=== PATIENT | male | born 1960 | race Caucasian/White ===

== ENCOUNTER → 2016-08-16 | Outpatient (REF) | payer OTHER ==
[~2016-08-16] MED LIST: /WARF25TA; /WARF5TA; ACET65TA; HYDR25TA6; LISI40TA; PERC5TAB8; VENTAER
[2016-08-16 15:16] LABS: MEAN CORPUSCULAR HEMOGLOBIN 31.3 pg (27.0-33.0); MEAN CORPUSCULAR HGB CONC 32.9 g/dl (32.0-36.5); MEAN CORPUSCULAR VOLUME 95.1 fl (80.0-96.0); PLATELET COUNT, AUTOMATED 160 k/mm3 (150-450); RED CELL DISTRIBUTION WIDTH 12.6 % (11.5-14.5); WHITE BLOOD COUNT 9.3 K/mm3 (4.0-10.0)
[2016-08-16 15:27] LABS: EOSINOPHILS 6 % (0-5)
[2016-08-16 17:01] LABS: ALBUMIN 3.7 GM/DL (3.2-5.2); ALBUMIN/GLOBULIN RATIO 0.97 (1.00-1.93); BILIRUBIN,TOTAL 0.4 MG/DL (0.2-1.0); CALCIUM LEVEL 8.6 MG/DL (8.5-10.1); CREATININE FOR GFR 1.68 MG/DL (0.70-1.30); GLOMERULAR FILTRATION RATE 45.2 (>56); POTASSIUM SERUM 4.3 MEQ/L (3.5-5.1); TOTAL PROTEIN 7.5 GM/DL (6.4-8.2)
== END ==
LOC: M SFHCLACO 09:10
PROVIDERS: ATTEND Physician Assistant
DX: D72.829 Elevated white blood cell count, unspecified (principal); E78.2 Mixed hyperlipidemia; I10 Essential (primary) hypertension; E55.9 Vitamin D deficiency, unspecified

== ENCOUNTER 2016-10-04 10:56 | Emergency (ER) | payer OTHER ==
[~2016-10-04] VITALS: Ht 182.9 cm; Wt 140.6 kg
[2016-10-04 12:20] LABS: BASO % 0.7 % (0.0-1.0); EOS # 0.4 K/mm3 (0.0-0.50); EOS % 5.6 % (0.0-3.0); LARGE UNSTAINED CELL # 0.1 K/mm3 (0.0-0.4); LARGE UNSTAINED CELL % 1.8 % (0.0-4.0); LYMPH # 1.2 K/mm3 (1.5-4.5); LYMPH % 15.4 % (24.0-44.0); MEAN CORPUSCULAR HEMOGLOBIN 31.6 pg (27.0-33.0); MEAN CORPUSCULAR HGB CONC 32.7 g/dl (32.0-36.5); MEAN CORPUSCULAR VOLUME 96.5 fl (80.0-96.0); MONO # 0.5 K/mm3 (0.0-0.8); NEUTROPHILS # 5.4 K/mm3 (1.8-7.7); NEUTROPHILS % 70.5 % (36.0-66.0); PLATELET COUNT, AUTOMATED 160 k/mm3 (150-450); RED CELL DISTRIBUTION WIDTH 12.7 % (11.5-14.5); WHITE BLOOD COUNT 7.7 K/mm3 (4.0-10.0)
[2016-10-04 12:31] LABS: ANION GAP 8 MEQ/L (8-16); BLOOD UREA NITROGEN 45 MG/DL (7-18); CALCIUM LEVEL 8.7 MG/DL (8.5-10.1); CARBON DIOXIDE LEVEL 23 MEQ/L (21-32); CHLORIDE LEVEL 111 MEQ/L (98-107); GLOMERULAR FILTRATION RATE 41.8 (>56); GLUCOSE, FASTING 106 MG/DL (70-105); POTASSIUM SERUM 4.5 MEQ/L (3.5-5.1); SODIUM LEVEL 142 MEQ/L (136-145)
--- NOTE | 2016-10-04 13:36 | REP ---
CHEST, PORTABLE: AP portable view of the chest is performed and compared to a prior study of 05/06/2009 There is mild cardiomegaly. There is pulmonary venous hypertension. No acute infiltrate is seen. The mediastinal silhouette is unremarkable. IMPRESSION: Mild cardiomegaly. No acute infiltrate. Signed by Babar Morales MD 10/04/2016 07:48 P
[2016-10-04 16:03] VITALS: BP 125/80
--- NOTE | 2016-10-05 08:07 | ECGEPIP ---
Stationary ECG Study [facility] - ED Test Date: 2016-10-04 Pat Name: CRYSTAL NEWMAN Department: Room: - Gender: M Journalism Internship: hoang : 1960 Requested By: Cam Stewart Order Number: [id number] Reading MD: Gretel Sarabia Measurements Intervals [place] Rate: 72 P: -19 IN: 113 QRS: 17 QRSD: 140 T: 28 QT: 382 QTc: 420 Interpretive Statements SINUS RHYTHM WITH SHORT IN INTERVAL RIGHT BUNDLE BRANCH BLOCK NO PRIOR FOR COMPARISON Electronically Signed On 10-05-2016 8:06:46 EDT by Gretel Sarabia
--- NOTE | 2016-10-05 08:16 | ECGEPIP ---
Stationary ECG Study [facility] - ED Test Date: 2016-10-04 Pat Name: CRYSTAL NEWMAN Department: Room: - Gender: M Inventory Taker: hoang : 1960 Requested By: Cam Stewart Order Number: [id number] Reading MD: Gretel Sarabia Measurements Intervals [place] Rate: 64 P: -17 NH: 111 QRS: 22 QRSD: 137 T: 29 QT: 392 QTc: 406 Interpretive Statements SINUS RHYTHM WITH SHORT NH INTERVAL RIGHT BUNDLE BRANCH BLOCK DECREASED RATE 10/04/16 11:09 Electronically Signed On 10-05-2016 8:16:03 EDT by Gretel Sarabia
== END 2016-10-04 16:16 | disposition home or self-care (01) ==
LOC: M ED 13:06
DX: N18.9 Chronic kidney disease, unspecified (principal); I51.7 Cardiomegaly; R07.89 Other chest pain; I12.9 Hypertensive chronic kidney disease with stage 1 through stage 4 chronic kidney disease, or unspecified chronic kidney disease; E78.5 Hyperlipidemia, unspecified; E66.01 Morbid (severe) obesity due to excess calories; Z82.49 Family history of ischemic heart disease and other diseases of the circulatory system

== ENCOUNTER → 2017-01-26 | Outpatient (REF) | payer OTHER ==
[2017-01-26 15:03] LABS: ALBUMIN 3.7 GM/DL (3.2-5.2); ALBUMIN/GLOBULIN RATIO 1.03 (1.00-1.93); BILIRUBIN,TOTAL 0.4 MG/DL (0.2-1.0); CALCIUM LEVEL 9.2 MG/DL (8.5-10.1); CREATININE FOR GFR 1.72 MG/DL (0.70-1.30); GLOMERULAR FILTRATION RATE 43.9 (>56); POTASSIUM SERUM 4.9 MEQ/L (3.5-5.1); TOTAL PROTEIN 7.3 GM/DL (6.4-8.2)
== END ==
LOC: M SFHCLACO 08:09
PROVIDERS: ATTEND Physician Assistant
DX: I10 Essential (primary) hypertension (principal); E78.2 Mixed hyperlipidemia; E55.9 Vitamin D deficiency, unspecified

== ENCOUNTER → 2017-03-30 | Outpatient (REF) | payer OTHER ==
[2017-03-30 14:23] LABS: MEAN CORPUSCULAR HEMOGLOBIN 31.1 pg (27.0-33.0); MEAN CORPUSCULAR HGB CONC 32.2 g/dl (32.0-36.5); MEAN CORPUSCULAR VOLUME 96.6 fl (80.0-96.0); RED CELL DISTRIBUTION WIDTH 13.1 % (11.5-14.5); WHITE BLOOD COUNT 9.3 10^3/uL (4.0-10.0)
[2017-03-30 14:26] LABS: CBCMD ORDERED? YES (YES)
[2017-03-30 14:46] LABS: ERYTHROCYTE SEDIMENTATION RATE 12 mm/hr (0-20)
[2017-03-30 14:54] LABS: ALBUMIN 3.8 GM/DL (3.2-5.2); ALBUMIN/GLOBULIN RATIO 1.03 (1.00-1.93); BILIRUBIN,TOTAL 0.3 MG/DL (0.2-1.0); CALCIUM LEVEL 8.8 MG/DL (8.5-10.1); CREATININE FOR GFR 2.48 MG/DL (0.70-1.30); GLOMERULAR FILTRATION RATE 28.7 (>56); TOTAL PROTEIN 7.5 GM/DL (6.4-8.2)
[2017-03-30 14:59] LABS: INR 0.95; POTASSIUM SERUM 5.7 MEQ/L (3.5-5.1)
[2017-03-30 15:14] LABS: BASOPHILS 2 % (0-4); EOSINOPHILS 2 % (0-5)
== END ==
LOC: M LAB REF 13:10
PROVIDERS: ATTEND Orthopaedic Surgery
DX: M19.072 Primary osteoarthritis, left ankle and foot (principal)

== ENCOUNTER → 2017-04-26 | Outpatient (REF) | payer OTHER ==
[~2017-04-26] MED LIST changes: +CHOLTAB6 PO; +DRIS50002 PO; +ISOS30TA4 PO; -LISI40TA; +LISI40TA PO; +MULT1TAB10 PO; +TORS20TA2 PO; +TYLE650T35 PO; +VITA500T PO; +VITATAB11 PO
== END ==
LOC: M LAB REF 17:17
PROVIDERS: ATTEND Radiology Diagnostic Radiology
DX: M25.472 Effusion, left ankle (principal)

== ENCOUNTER → 2017-05-04 | Outpatient (CLI) | payer OTHER ==
[~2017-05-04] MED LIST changes: +LIDOCAINE 1% MDV 20ML VIAL As Ordered ONE
--- NOTE | 2017-05-04 13:15 | REP ---
Soft-tissue ultrasound left ankle and distal calf: History: MRI study of the left ankle from [facility] dated March 11, 2017 showed a complex fluid collection 3.5 x 2.5 x 1.8 cm in the distal calf consistent with a ganglion. The patient was referred for ultrasound directed needle aspiration and culture. Sonographic findings: The patient was scanned in the prone position and medial, lateral, and the posterior soft-tissue ultrasound is performed from the hind foot to the midcalf. The recently identified fluid collection in the distal calf on the prior MRI study is not seen today. Only a small quantity of subcutaneous edema is noted. There is a small quantity of fluid surrounding a somewhat thickened tibialis posterior tendon at the level of the ankle. No other fluid collection is seen. Impression: The fluid collection observed on prior MRI is not present today. Accordingly, we did not aspirate. Findings were telephoned to Dr. Mckenna. Signed by Jamaal Douglas MD 05/04/2017 04:08 P
== END ==
LOC: M RADPRO 10:15
PROVIDERS: ATTEND Orthopaedic Surgery
DX: R22.42 Localized swelling, mass and lump, left lower limb (principal)

== ENCOUNTER → 2017-05-06 | Outpatient (CLI) | payer OTHER ==
[~2017-05-06] MED LIST changes: -LIDOCAINE 1% MDV 20ML VIAL As Ordered ONE
[2017-05-06 13:20] LABS: BASO # 0.1 10^3/uL (0.0-0.2); BASO % 0.7 % (0.0-1.0); EOS # 0.2 10^3/uL (0.0-0.50); EOS % 1.9 % (0.0-3.0); IMMATURE GRANULOCYTE % 0.3 % (0-0); LYMPH # 1.8 10^3/uL (1.5-4.5); LYMPH % 20.2 % (24.0-44.0); MEAN CORPUSCULAR HEMOGLOBIN 30.9 pg (27.0-33.0); MEAN CORPUSCULAR HGB CONC 31.9 g/dl (32.0-36.5); MEAN CORPUSCULAR VOLUME 96.7 fl (80.0-96.0); MONO % 11.4 % (0.0-5.0); NEUTROPHILS # 5.7 10^3/uL (1.8-7.7); NEUTROPHILS % 65.5 % (36.0-66.0); PLATELET COUNT, AUTOMATED 220 10^3/uL (150-450); RED CELL DISTRIBUTION WIDTH 13.2 % (11.5-14.5); WHITE BLOOD COUNT 8.7 10^3/uL (4.0-10.0)
[2017-05-06 13:34] LABS: INR 1.02
[2017-05-06 13:35] LABS: ALBUMIN/GLOBULIN RATIO 1.08 (1.00-1.93); BILIRUBIN,TOTAL 0.4 MG/DL (0.2-1.0); CALCIUM LEVEL 9.5 MG/DL (8.5-10.1); CREATININE FOR GFR 2.01 MG/DL (0.70-1.30); FREE T4 0.82 NG/DL (0.76-1.46); GLOMERULAR FILTRATION RATE 36.6 (>56); MAGNESIUM LEVEL 2.4 MG/DL (1.8-2.4); PERCENT SATURATION 20.2 % (19.7-50.0); POTASSIUM SERUM 4.8 MEQ/L (3.5-5.1); TOTAL PROTEIN 7.7 GM/DL (6.4-8.2)
== END ==
LOC: M WUC 11:28
PROVIDERS: ATTEND Family Medicine
DX: Z01.818 Encounter for other preprocedural examination (principal); I10 Essential (primary) hypertension; D53.9 Nutritional anemia, unspecified

== ENCOUNTER 2017-05-08 07:30 | Inpatient (IN) | payer OTHER ==
[~2017-05-08] VITALS: Ht 182.9 cm; Wt 149.7 kg
[2017-05-24] VITALS (7 sets, daily range): BP systolic 130–137; BP diastolic 67–72; O2SAT 97
[2017-05-24] MEDS ORDERED: LIDOCAINE 1% MDV 20ML VIAL SQ PRN (06:15)
[2017-05-24] MEDS ORDERED: LR 1,000 ML IV SCH ×2 (06:15→16:15)
[2017-05-24] MEDS ORDERED: fentaNYL 250 MCG/5 ML INJECTION (J3010) As Ordered ONE (06:53)
[2017-05-24] MEDS ORDERED: ROCURONIUM BROMIDE 50 MG/5 ML VIAL As Ordered ONE ×2 (06:53→08:08)
[2017-05-24] MEDS ORDERED: MIDAZOLAM INJ 2 MG/2 ML VIAL (J2250) As Ordered ONE (06:53)
[2017-05-24] MEDS ORDERED: fentaNYL 100 MCG/2 ML INJECTION (J3010) As Ordered ONE (06:53)
[2017-05-24] MEDS ORDERED: LIDOCAINE 2% INJ 100 MG/5 ML SDV (FOR ANES.) As Ordered ONE ×2 (06:53→08:08)
[2017-05-24] MEDS ORDERED: HEPARIN SOD (PORCINE) 5000 UNITS/ML VIAL As Ordered ONE (07:43)
[2017-05-24] MEDS ORDERED: MIDAZOLAM INJ 2 MG/2 ML VIAL (J2250) IV ONE (07:45)
[2017-05-24] MEDS ORDERED: fentaNYL 100 MCG/2 ML INJECTION (J3010) IV ONE (07:45)
[2017-05-24] MEDS ORDERED: BUPIVACAINE HCL 0.5% 30 ML VIAL As Ordered ONE (08:03)
--- NOTE | 2017-05-24 08:06 | HPE ---
DATE OF ADMISSION: 05/24/2017 CHIEF COMPLAINT: Left foot pain. HISTORY OF PRESENT ILLNESS: Jasiel Boucher is a 56-year-old male who has had painful flat foot for many years. He has failed bracing and other conservative measures. He presents for flat foot reconstruction. PAST MEDICAL HISTORY: 1. Hypertension. 2. Hyperlipidemia. 3. Chronic kidney disease, stage III. 4. Morbid obesity. 5. Chronic right bundle branch block. 6. Vitamin D deficiency. PAST SURGICAL HISTORY: 1. Left hip replacement in 2001. 2. Hernia repair in 1985. 3. Repair of a deviated septum in 1967. HOME MEDICATIONS: - Amlodipine - CholestOff - acetaminophen - multivitamin - vitamin C - B complex - Drisdol - isosorbide mononitrate - lisinopril - albuterol - torsemide SOCIAL HISTORY: The patient has not smoked in 10 years. He lives with his . He is a andre. PHYSICAL EXAMINATION: GENERAL: Well appearing, alert and oriented. No acute distress. PULMONARY: Regular. Nonlabored breathing. CARDIOVASCULAR: Regular. Dorsalis pedis (DP) pulse. MUSCULOSKELETAL: The patient has a significant left flat foot deformity with pain in the subfibular sinus tarsi region. He is neurovascularly intact to this extremity. IMAGING: Radiographs performed at [facility] demonstrate a left flat foot deformity with significant abduction of the forefoot and heel valgus. IMPRESSION: Left flat foot deformity. PLAN: Risks and benefits of surgery were discussed with the patient in detail. He has elected to proceed with left flat foot deformity. Informed consent has been obtained. The risks include but are not limited to infection, deep venous thrombosis (DVT), need for additional procedures, continued pain and stiffness. The patient understands these risks and has elected to proceed with the procedure.
[2017-05-24] MEDS ORDERED: PROPOFOL 200 MG/20 ML VIAL As Ordered ONE ×2 (08:08→15:30)
[2017-05-24] MEDS ORDERED: ePHEDrine SULFATE 25 MG/5 ML(5MG/ML) SYRINGE As Ordered ONE ×3 (08:31→13:36)
[2017-05-24] MEDS ORDERED: PHENYLephrine HCL 500 MCG/5 ML (100MCG/ML) SYRINGE (J2370) As Ordered ONE ×2 (10:27→13:38)
[2017-05-24] MEDS ORDERED: dexameTHASONE 10 MG/1 ML VIAL PRES.FREE (J1100) ONE (11:28)
[2017-05-24] MEDS ORDERED: ROPIvacaine 0.5% 30 ML INJECTION (J2795 PER 1MG) ONE (11:28)
[2017-05-24] MEDS ORDERED: ceFAZolin 2 GM/D5W 50 ML IV BAG (J0690 PER 500MG) As Ordered ONE (13:06)
[2017-05-24] MEDS ORDERED: HYDROmorphone HCL 2 MG/ML 1ML VIAL (J1170) As Ordered ONE (13:20)
[2017-05-24] MEDS ORDERED: DESFLURANE 240 ML INHALANT As Ordered ONE (13:46)
[2017-05-24] MEDS ORDERED: PHENYLEPHRINE INJ 10MG/ML VIAL (J2370) As Ordered ONE (13:54)
[2017-05-24] MEDS ORDERED: NEOSTIGMINE 10 MG/10 ML VIAL (J2710) As Ordered ONE (14:39)
[2017-05-24] MEDS ORDERED: GLYCOPYRROLATE INJ 0.2 MG/ML 2 ML VIAL As Ordered ONE (14:39)
[2017-05-24] MEDS ORDERED: NORCO, ANEXSIA 5/325MG TABLET (HYDROcodone/ACETAMINOPHEN) PO PRN (16:15)
[2017-05-24] MEDS ORDERED: ONDANSETRON 4MG/2ML VIAL (J2405) IV PRN ×2 (16:15→19:30)
[2017-05-24] MEDS: fentaNYL 100 MCG/2 ML INJECTION (J3010) IV PRN ×4 (16:20→16:37)
[2017-05-24] MEDS ORDERED: FLEET ENEMA PR PRN (16:45)
[2017-05-24] MEDS ORDERED: oxyCODONE 5MG TAB PO PRN (16:45)
[2017-05-24] MEDS ORDERED: MORPHINE 10 MG/ML 1ML VIAL As Ordered ONE (16:47)
[2017-05-24] MEDS: MORPHINE 10 MG/ML 1ML VIAL IV PRN ×5 (16:51→17:11)
[2017-05-24] MEDS ORDERED: HYDROmorphone HCL 1 MG/ML SYRINGE (J1170) As Ordered ONE (17:28)
[2017-05-24] MEDS ORDERED: HYDROmorphone HCL 1 MG/ML SYRINGE (J1170) IV PRN (17:45)
[2017-05-24] MEDS: ACETAMINOPHEN 500 MG TAB PO SCH (18:38)
[2017-05-24] MEDS: RIVAROXABAN 10 MG TAB (XARELTO) PO SCH (18:39)
[2017-05-24] MEDS: oxyCODONE 5MG TAB PO PRN (18:39)
[2017-05-24] MEDS: LR 1,000 ML IV SCH (18:44)
[2017-05-25] MEDS: ACETAMINOPHEN 500 MG TAB PO SCH ×3 (00:28→16:20)
[2017-05-25] MEDS: oxyCODONE 5MG TAB PO PRN ×5 (00:28→23:58)
[2017-05-25] MEDS: LR 1,000 ML IV SCH ×2 (03:52→14:59)
[2017-05-25 04:00] VITALS: BP 127/66
[2017-05-25 06:00] VITALS: BP 125/65
[2017-05-25 07:13] LABS: MEAN CORPUSCULAR HEMOGLOBIN 30.5 pg (27.0-33.0); MEAN CORPUSCULAR HGB CONC 31.9 g/dl (32.0-36.5); MEAN CORPUSCULAR VOLUME 95.4 fl (80.0-96.0); PLATELET COUNT, AUTOMATED 162 10^3/uL (150-450); RED CELL DISTRIBUTION WIDTH 13.3 % (11.5-14.5); WHITE BLOOD COUNT 11.8 10^3/uL (4.0-10.0)
[2017-05-25 07:25] LABS: CALCIUM LEVEL 8.3 MG/DL (8.5-10.1); CREATININE FOR GFR 2.05 MG/DL (0.70-1.30); GLOMERULAR FILTRATION RATE 35.8 (>56); POTASSIUM SERUM 4.5 MEQ/L (3.5-5.1)
[2017-05-25] MEDS: SENOKOT S TAB PO SCH ×2 (08:24→20:00)
[2017-05-25] MEDS: LISINOPRIL 40 MG TAB PO SCH (08:24)
[2017-05-25] MEDS: VITAMIN D 1,000 INTERNATIONAL UNITS TABLET PO SCH (08:24)
[2017-05-25] MEDS: ISOSORBIDE MON. (IMDUR) 30 MG XR TAB PO SCH (08:25)
[2017-05-25] MEDS: TORSEMIDE 20 MG TAB PO SCH (08:25)
[2017-05-25] MEDS: MIRALAX *UNIT DOSE* 17GM PACKET PO SCH (08:26)
[2017-05-25 08:30] VITALS: O2SAT 95
--- NOTE | 2017-05-25 09:00 | REP ---
Left foot series: 18 views intraprocedural. History: Flatfoot reconstruction. 6 minutes 27 seconds of fluoroscopy time is reported. Findings: A sequence of 18 fluoroscopically obtained procedural spot radiographs of the left foot document calcaneal osteotomies and metallic pin fixation. There is also medial cuneiform osteotomy and pinning. Signed by Jamaal Douglas MD 05/25/2017 03:53 P
[2017-05-25] MEDS: MORPHINE 4 MG/ML 1ML SYRINGE IV PRN ×3 (12:32→22:47)
[2017-05-25 14:00] VITALS: BP 149/69
--- NOTE | 2017-05-25 14:01 | CR.PDOC ---
[facility] Consultation Consultation REFERRING PROVIDER: ATTENDING PHYSICIAN: Dr. Caballero REASON FOR CONSULTATION/CHIEF COMPLAINT: Medical management following orthopedic foot surgery HISTORY OF PRESENT ILLNESS: Mr. Boucher is a 56-year-old male, obese male, who presented to the orthopedics office with painful flat foot for many years. He has failed bracing and other conservative measures. On 05/24/2017 patient underwent a left flat foot reconstruction medialization calcaneal osteotomy. He also underwent a lateral column length and cotton osteotomy flexor digitorum longus tendon transfer. Patient tolerated procedure without difficulties, and he is on proper medication for pain control. He does not appear to be in any distress at the moment. ALLERGIES: Please see below. HOME MEDICATIONS: Please see below. PAST MEDICAL HISTORY: Hypertension Hyperlipidemia Chronic kidney disease Morbid obesity Chronic right bundle branch block Vitamin D deficiency PAST SURGICAL HISTORY: 1. Left hip replacement in 2001. 2. Hernia repair in 1985. 3. Repair of a deviated septum in 1967 FAMILY HISTORY: Mom and dad both have hypertension SOCIAL HISTORY: The patient has not smoked in 10 years. He lives with his . He is a andre. REVIEW OF SYSTEMS: CONSTITUTIONAL: Chills denies any nausea denies any vomiting HEENT: Denies any watery eyes denies history of throat pain a next well and denied any headaches CARDIOVASCULAR: Denies palpitations, denied chest pain RESPIRATORY: As in difficulty breathing denies any shortness of breath denies any cough is any pleuritic chest pain GENITOURINARY: Denies any issues or urination denies frequency denies dysuria hematuria MUSCULOSKELETAL: Admits to leg pain on his left foot for recent surgery GASTROINTESTINAL: No issues to 90 nausea vomiting NEUROLOGICAL: The foot is numb from anesthetic no block PHYSICAL EXAMINATION: PHYSICAL EXAMINATION ON DISCHARGE: Vitals: (see below) General: No acute distress, laying comfortably in bed. HEENT: Moist mucous membranes. Neck: No JVD or lymphadenopathy Cardiac: RRR, No murmurs Pulm: Clear to auscultation b/l. No wheezing, rhonchi Abd: NT/ND + BS Ext: Left foot is numb from anesthetic nerve block. Left foot is currently wrapped up in a soft bandage right foot has 2+ pedal pulse noted edema noted LABORATORY DATA: Please see below. ASSESSMENT/PLAN: A 56-year-old man recently underwent surgical painful flat foot for many years Medical team was consulted for medical management of patient's chronic medical conditions. Hypertension -Continue lisinopril, BP is currently stable Hyperlipidemia Chronic kidney disease stage III -Patient's BUN and creatinine appear to be at baseline Morbid obesity -Recommend dietitian and nutrition consult upon discharge Vital Signs/I&O Vital Signs Date Time Temp Pulse Resp B/P (MAP) Pulse Ox O2 Delivery O2 Flow Rate FiO2 05/25/17 12:42 17 05/25/17 08:30 Room Air 05/25/17 08:25 129/76 05/25/17 06:00 98.0 67 97 05/24/17 21:30 2.0 I&O- Last 24 Hours up to 6 AM 05/25/17 06:00 Intake Total 5035 ml Output Total 2130 ml Balance 2905 ml Laboratory Data Labs 24H Laboratory Tests 2 05/25/17 06:30: Nucleated Red Blood Cells % (auto) 0.0, Anion Gap 6L, Glomerular Filtration Rate 35.8L, Blood Urea Nitrogen 41H, Creatinine 2.05H, Sodium Level 141, Potassium Level 4.5, Chloride Level 106, Carbon Dioxide Level 29, Calcium Level 8.3L CBC/BMP Laboratory Tests 05/25/17 06:30 Red Blood Count 3.48 L, Mean Corpuscular Volume 95.4, Mean Corpuscular Hemoglobin 30.5, Mean Corpuscular Hemoglobin Concent 31.9 L, Red Cell Distribution Width 13.3, Calcium Level 8.3 L Allergies Coded Allergies: No Known Allergies (Verified , 05/08/09) Home Medications Scheduled (Cholest Off) 450 Mg Tab, 900 MG PO DAILY, (Reported) Acetaminophen (Tylenol 8 Hour Arthritis) 650 Mg Tab, 1,300 MG PO BID, (Reported) Ascorbic Acid (Vitamin C) 500 Mg Tab, 500 MG PO DAILY, (Reported) B1/B2/B3/B5/B6 (Vitamin B Complex) 1 Tab Tab, 1 TAB PO DAILY, (Reported) Isosorbide Mononitrate (Isosorbide Mononitrate ER) 30 Mg Tab, PO DAILY, ( Reported) Lisinopril (Lisinopril) 40 Mg Tab, PO DAILY, (Reported) Multivitamins (Multivitamin Adults) 1 Tab Tab, 1 TAB PO DAILY, (Reported) Oxycodone HCl (Oxycodone HCl) 10 Mg Tab, 10 MG PO q4 h for 10 Days, #40 Torsemide (Torsemide) 20 Mg Tab, 20 MG PO DAILY, (Reported) Vitamin D (Drisdol) 50,000 Unit Cap, 50,000 UNIT PO QWEEK, (Reported) monday Scheduled PRN Rivaroxaban (Xarelto) 10 Mg Tab, 10 MG PO DAILY PRN for anticoagulation for 30 Days Rivaroxaban (Xarelto) 10 Mg Tab, 10 MG PO DAILY PRN for anticoagulation for 30 Days, #30 GME ATTESTATION GME ATTESTATION My faculty preceptor for this patient encounter was physically present during the encounter and was fully available. All aspects of the patient interview, examination, medical decision making process, and medical care plan development were reviewed and approved by the faculty preceptor. The faculty preceptor is aware and concurs with the plan as stated in the body of this note and will attest to such by his/her cosignature. ATTENDING NOTE I, All Caballero, have both independently examined this patient as well as reviewed the documentation. I have discussed in detail with the resident the findings and plan of treatment as documented in the residents documentation. I will continue to follow the patient and offer further guidance to the patients care as necessary during this hospital stay. RAFI GALDAMEZ DO May 25, 2017 13:36 ALL CABALLERO MD May 28, 2017 16:00
[2017-05-25] MEDS: RIVAROXABAN 10 MG TAB (XARELTO) PO SCH (17:13)
[2017-05-25 20:11] VITALS: O2SAT 96
[2017-05-25 22:00] VITALS: BP 135/81
[2017-05-26] MEDS: ACETAMINOPHEN 500 MG TAB PO SCH ×3 (00:45→16:36)
[2017-05-26] MEDS: LR 1,000 ML IV SCH (01:54)
[2017-05-26] MEDS: MORPHINE 4 MG/ML 1ML SYRINGE IV PRN (02:48)
[2017-05-26] MEDS: oxyCODONE 5MG TAB PO PRN ×5 (03:57→20:07)
[2017-05-26 06:00] VITALS: BP 133/81
[2017-05-26 06:51] LABS: MEAN CORPUSCULAR HEMOGLOBIN 31.2 pg (27.0-33.0); MEAN CORPUSCULAR HGB CONC 32.5 g/dl (32.0-36.5); PLATELET COUNT, AUTOMATED 165 10^3/uL (150-450); RED CELL DISTRIBUTION WIDTH 13.1 % (11.5-14.5); WHITE BLOOD COUNT 11.3 10^3/uL (4.0-10.0)
[2017-05-26 07:14] LABS: CALCIUM LEVEL 8.6 MG/DL (8.5-10.1); CREATININE FOR GFR 1.84 MG/DL (0.70-1.30); GLOMERULAR FILTRATION RATE 40.6 (>56); POTASSIUM SERUM 4.2 MEQ/L (3.5-5.1)
[2017-05-26] MEDS: LISINOPRIL 40 MG TAB PO SCH (08:45)
[2017-05-26] MEDS: TORSEMIDE 20 MG TAB PO SCH (08:45)
[2017-05-26] MEDS: MIRALAX *UNIT DOSE* 17GM PACKET PO SCH (08:45)
[2017-05-26] MEDS: ISOSORBIDE MON. (IMDUR) 30 MG XR TAB PO SCH (08:45)
[2017-05-26] MEDS: SENOKOT S TAB PO SCH ×2 (08:45→20:07)
[2017-05-26] MEDS: VITAMIN D 1,000 INTERNATIONAL UNITS TABLET PO SCH (08:45)
[2017-05-26] MEDS ORDERED: OXYC10TA12 PO (09:24)
[2017-05-26] MEDS ORDERED: XARE10TA PO ×2 (09:29→09:33)
--- NOTE | 2017-05-26 13:14 | IPNPDOC ---
Date Seen The patient was seen on 05/26/17. Progress Note SUBJECTIVE: Patient is a 56-year-old white male post surgery on left foot for flat foot syndrome on 05/25/17. Jasiel Boucher says that he is feeling good. He has 3/10 pain in his left foot which is wrapped in a bandage. He says complains of paresthesia, but he is sensitive to touch on physical. He has been walking with a walker with minimal pain. He denies fevers, chills, nausea, sweats. His foot does not feel warm to him. He denies chest pain or feelings of extra beats. He denies shortness of breath. He had not had any bowel movement although he states that he does not regularly have daily bowel movements. He has been urinating well without pain. OBJECTIVE PHYSICAL EXAMINATION: VITAL SIGNS: Please see below. GENERAL: Lying in bed, cooperative HEENT: normocephalic, atraumatic, mucous membranes moist CARDIOVASCULAR: RRR, no murmurs, rubs, or gallops, normal S1 and S2 RESPIRATORY: Clear to auscultation, no wheezes, rhonchi or rales ABDOMINAL: bowel sounds heard, no tenderness to palpation EXTREMITIES: cap refill normal in L toes, sensation intact in toes, R pedal pulse 2+ NEUROLOGICAL: alert and oriented LABORATORY DATA: Please see below. MICROBIOLOGY: Please see below. IMAGIN05/24/17 - documented calcaneal osteotomies and metallic pin fixation along with medial cuneiform osteotomy and pinning. ASSESSMENT AND PLAN: This is a 56-year-old white male post surgery on left foot for flat foot syndrome. PROBLEMS: 1. S/P surgery for left flat foot reconstruction -patient remains afebrile -WBC count is 11.3 -3/10 pain with morphine -continue pain management -H and H Stable 2. Hypertension -patients BP is stable -continue home medications for HTN 3. Hyperlipidemia -continue home meds 4. CKD stage III -BUN is 35 and cr is 1.84, both are decreased from the previous day's labs. However there are better than there where 4 months ago -We will continue to monitor 5. Obesity -recommend athletic field custodian and nutrition consult on discharge. 6. DVT prophylaxis -xarelto VS, I&O, 24H, Fishbone Vital Signs/I&O Vital Signs Date Time Temp Pulse Resp B/P (MAP) Pulse Ox O2 Delivery O2 Flow Rate FiO2 05/26/17 08:45 133/81 05/26/17 06:00 97.2 71 12 95 Room Air 05/24/17 21:30 2.0 I&O- Last 24 Hours up to 6 AM 05/26/17 06:00 Intake Total 2040 ml Output Total 8075 ml Balance -6035 ml Laboratory Data 24H LABS Laboratory Tests 2 05/26/17 06:33: Nucleated Red Blood Cells % (auto) 0.0, Anion Gap 5L, Glomerular Filtration Rate 40.6L, Blood Urea Nitrogen 35H, Creatinine 1.84H, Sodium Level 139, Potassium Level 4.2, Chloride Level 103, Carbon Dioxide Level 31, Calcium Level 8.6 CBC/BMP Laboratory Tests 05/26/17 06:33 Red Blood Count 3.46 L, Mean Corpuscular Volume 96.0, Mean Corpuscular Hemoglobin 31.2, Mean Corpuscular Hemoglobin Concent 32.5, Red Cell Distribution Width 13.1, Calcium Level 8.6 GME ATTESTATION GME ATTESTATION My faculty preceptor for this patient encounter was physically present during the encounter and was fully available. All aspects of the patient interview, examination, medical decision making process, and medical care plan development were reviewed and approved by the faculty preceptor. The faculty preceptor is aware and concurs with the plan as stated in the body of this note and will attest to such by his/her cosignature. ATTENDING NOTE I, All Lawrence, have both independently examined this patient as well as reviewed the documentation. I have discussed in detail with the resident the findings and plan of treatment as documented in the residents documentation. I will continue to follow the patient and offer further guidance to the patients care as necessary during this hospital stay. RAFI GALDAMEZ DO May 26, 2017 10:02 ALL LAWRENCE MD May 28, 2017 16:04
[2017-05-26 14:00] VITALS: BP 139/73
[2017-05-26] MEDS: RIVAROXABAN 10 MG TAB (XARELTO) PO SCH (17:21)
[2017-05-26 22:00] VITALS: BP 133/65
[2017-05-27] MEDS: ACETAMINOPHEN 500 MG TAB PO SCH ×2 (01:22→08:16)
[2017-05-27] MEDS: oxyCODONE 5MG TAB PO PRN ×3 (01:54→11:09)
[2017-05-27 06:00] VITALS: BP 148/76
[2017-05-27 07:33] LABS: BASO # 0.1 10^3/uL (0.0-0.2); BASO % 0.5 % (0.0-1.0); EOS # 0.3 10^3/uL (0.0-0.50); EOS % 2.7 % (0.0-3.0); IMMATURE GRANULOCYTE % 0.5 % (0-0); LYMPH # 1.2 10^3/uL (1.5-4.5); LYMPH % 10.9 % (24.0-44.0); MEAN CORPUSCULAR HEMOGLOBIN 31.2 pg (27.0-33.0); MEAN CORPUSCULAR HGB CONC 32.6 g/dl (32.0-36.5); MEAN CORPUSCULAR VOLUME 95.8 fl (80.0-96.0); MONO # 1.3 10^3/uL (0.0-0.8); MONO % 12.1 % (0.0-5.0); NEUTROPHILS % 73.3 % (36.0-66.0); PLATELET COUNT, AUTOMATED 177 10^3/uL (150-450); RED CELL DISTRIBUTION WIDTH 12.8 % (11.5-14.5); WHITE BLOOD COUNT 10.9 10^3/uL (4.0-10.0)
[2017-05-27 07:54] LABS: ALBUMIN 3.3 GM/DL (3.2-5.2); ALBUMIN/GLOBULIN RATIO 0.92 (1.00-1.93); BILIRUBIN,TOTAL 0.4 MG/DL (0.2-1.0); CALCIUM LEVEL 8.4 MG/DL (8.5-10.1); CREATININE FOR GFR 1.91 MG/DL (0.70-1.30); GLOMERULAR FILTRATION RATE 38.9 (>56); POTASSIUM SERUM 4.3 MEQ/L (3.5-5.1); TOTAL PROTEIN 6.9 GM/DL (6.4-8.2)
[2017-05-27 08:14] VITALS: BP 148/76
[2017-05-27] MEDS: ISOSORBIDE MON. (IMDUR) 30 MG XR TAB PO SCH (08:14)
[2017-05-27] MEDS: TORSEMIDE 20 MG TAB PO SCH (08:15)
[2017-05-27] MEDS: VITAMIN D 1,000 INTERNATIONAL UNITS TABLET PO SCH (08:15)
[2017-05-27] MEDS: SENOKOT S TAB PO SCH (08:15)
[2017-05-27] MEDS: LISINOPRIL 40 MG TAB PO SCH (08:15)
[2017-05-27] MEDS: MIRALAX *UNIT DOSE* 17GM PACKET PO SCH (08:16)
--- NOTE | 2017-05-27 11:50 | REP ---
Clinical: Pain. Recent surgery. Technique: Portable AP, lateral, oblique views of the left ankle. Findings: Diffuse soft tissue swelling noted. Underlying age-related degenerative changes are appreciated along with evidence for prior open reduction and fixation involving the calcaneus and midfoot. Impression: Diffuse swelling. Signed by Farhad Lopes MD 05/27/2017 11:42 A
--- NOTE | 2017-05-27 11:51 | REP ---
Clinical: Pain. Status post surgery. Technique: Portable AP, lateral, oblique views of the left foot. Findings: Postsurgical changes are appreciated. Overlying soft tissue swelling with small amount of subcutaneous emphysema. Impression: Diffuse soft tissue swelling. Signed by Farhad Lopes MD 05/27/2017 11:43 A
--- NOTE | 2017-05-27 13:40 | IPNPDOC ---
Date Seen The patient was seen on 05/27/17. Progress Note SUBJECTIVE: Patient is a 56-year-old white male post surgery on left foot for flat foot syndrome on 05/25/[address] Foss. Medicine was consulted after his surgery for his medical management. This morning patient says that he is doing well. He denies being in pain, stating that my pain medications are working. His foot is current is a cast. Not erythema noticed and patient admits to his toe sensation returning. Pt will be discharge today. OBJECTIVE PHYSICAL EXAMINATION: VITAL SIGNS: Please see below. GENERAL: Lying in bed, cooperative, pleasant, happy to be going home HEENT: normocephalic, atraumatic, mucous membranes moist, no tonsullar exudates CARDIOVASCULAR: RRR, No rubs, or gallops, normal S1 and S2 RESPIRATORY: Clear to auscultation, no wheezes ABDOMINAL: bowel sounds heard, no tenderness to palpation EXTREMITIES: sensation intact in toes, R pedal pulse 2+ NEUROLOGICAL: alert and oriented LABORATORY DATA: Please see below. MICROBIOLOGY: Please see below. IMAGING: Ankle xray: 05/27/17: Diffuse soft tissue swelling noted. Underlying age-related degenerative changes are appreciated along with evidence for prior open reduction and fixation involving the calcaneus and midfoot ASSESSMENT AND PLAN: This is a 56-year-old white male post surgery on left foot for flat foot syndrome. PROBLEMS: S/P surgery for left flat foot reconstruction -patient remains afebrile -WBC count is 10.9 ( trending down) -H and H Stable Hypertension -patients BP is stable -continue home medications for HTN Hyperlipidemia -continue home meds CKD stage III -BUN is 35 and cr is 1.84, both are decreased from the previous day's labs. However there are better than there where 4 months ago -We will continue to monitor Obesity -recommend shop estimator and nutrition consult on discharge. DVT prophylaxis -xarelto Dispo: Patient will be discharge home today. He is medically stable to go home , but he will need followup with his PCP for management for his chronic medical conditions VS, I&O, 24H, Fishbone Vital Signs/I&O Vital Signs Date Time Temp Pulse Resp B/P (MAP) Pulse Ox O2 Delivery O2 Flow Rate FiO2 05/27/17 11:39 18 05/27/17 08:14 148/76 05/27/17 08:00 Room Air 05/27/17 06:00 97.5 65 97 05/24/17 21:30 2.0 I&O- Last 24 Hours up to 6 AM 05/27/17 06:00 Intake Total 2040 ml Output Total 4330 ml Balance -2290 ml Laboratory Data 24H LABS Laboratory Tests 2 05/27/17 07:20: Immature Granulocyte % (Auto) 0.5H, White Blood Count 10.9H, Red Blood Count 3.56L, Hemoglobin 11.1L, Hematocrit 34.1L, Mean Corpuscular Volume 95.8, Mean Corpuscular Hemoglobin 31.2, Mean Corpuscular Hemoglobin Concent 32.6, Red Cell Distribution Width 12.8, Platelet Count 177, Neutrophils (%) (Auto) 73.3H, Lymphocytes (%) (Auto) 10.9L, Monocytes (%) (Auto) 12.1H, Eosinophils (%) (Auto ) 2.7, Basophils (%) (Auto) 0.5, Neutrophils # (Auto) 8.0H, Lymphocytes # (Auto ) 1.2L, Monocytes # (Auto) 1.3H, Eosinophils # (Auto) 0.3, Basophils # (Auto) 0.1, Immature Granulocyte # (Auto) 0.1H, Nucleated Red Blood Cells % (auto) 0.0 , Anion Gap 6L, Glomerular Filtration Rate 38.9L, Blood Urea Nitrogen 36H, Creatinine 1.91H, Sodium Level 139, Potassium Level 4.3, Chloride Level 100, Carbon Dioxide Level 33H, Calcium Level 8.4L, Aspartate Amino Transf (AST/SGOT) 69H, Alanine Aminotransferase (ALT/SGPT) 16, Alkaline Phosphatase 75, Total Bilirubin 0.4, Total Protein 6.9, Albumin 3.3, Magnesium Level 2.0, Albumin/ Globulin Ratio 0.92L CBC/BMP Laboratory Tests 05/27/17 07:20 Red Blood Count 3.56 L, Mean Corpuscular Volume 95.8, Mean Corpuscular Hemoglobin 31.2, Mean Corpuscular Hemoglobin Concent 32.6, Red Cell Distribution Width 12.8, Neutrophils (%) (Auto) 73.3 H, Lymphocytes (%) (Auto) 10.9 L, Monocytes (%) (Auto) 12.1 H, Eosinophils (%) (Auto) 2.7, Basophils (%) ( Auto) 0.5, Neutrophils # (Auto) 8.0 H, Lymphocytes # (Auto) 1.2 L, Monocytes # ( Auto) 1.3 H, Eosinophils # (Auto) 0.3, Basophils # (Auto) 0.1, Calcium Level 8.4 L, Aspartate Amino Transf (AST/SGOT) 69 H, Alanine Aminotransferase (ALT/ SGPT) 16, Alkaline Phosphatase 75, Total Bilirubin 0.4, Total Protein 6.9, Albumin 3.3 GME ATTESTATION GME ATTESTATION My faculty preceptor for this patient encounter was physically present during the encounter and was fully available. All aspects of the patient interview, examination, medical decision making process, and medical care plan development were reviewed and approved by the faculty preceptor. The faculty preceptor is aware and concurs with the plan as stated in the body of this note and will attest to such by his/her cosignature. ATTENDING NOTE I, All Lawrence, have both independently examined this patient as well as reviewed the documentation. I have discussed in detail with the resident the findings and plan of treatment as documented in the residents documentation. I will continue to follow the patient and offer further guidance to the patients care as necessary during this hospital stay. RAFI GALDAMEZ DO May 27, 2017 13:25 ALL LAWRENCE MD May 28, 2017 16:11
[2017-05-27 14:00] VITALS: BP 158/92
--- NOTE | 2017-05-31 16:57 | DSES ---
DATE OF ADMISSION: 05/24/2017 DATE OF DISCHARGE: 05/27/2017 ATTENDING PHYSICIAN: Dr. Argentina Newton ADMITTING DIAGNOSIS: Left foot pain secondary to left posterior tibial tendon insufficiency and adult acquired flat foot deformity. OTHER DIAGNOSES: 1. Hypertension. 2. Hyperlipidemia. 3. Stage III chronic kidney disease. 4. Morbid obesity. 5. Vitamin D deficiency. 6. Chronic right bundle branch block. DISCHARGE DIAGNOSIS: Left foot pain secondary to left posterior tibial tendon insufficiency and adult acquired flat foot deformity s/p reconstruction. HISTORY: The patient is a 56-year-old male with painful flatfoot deformity on the left for many years. He failed bracing and other conservative measures so he consented for a reconstruction with Dr. Newton. OPERATION PERFORMED: 1. Left flexor digitorum longus transfer to the navicular 2. Right posterior calcaneal osteotomy 3. Right lateral column lengthening 4. Right iliac crest bone marrow aspirate 5. Right gastrocnemius recession 6. C-Arm of the right foot using the mini C-Arm. 7. Spring ligament repair. HOSPITAL COURSE: The patient underwent a left flatfoot reconstruction under general anesthesia which was uneventful. His hospital course was without complication. He was discharged on oral pain medications and will resume his preoperative medications and diet. He will remain in cast and followup in our office in approximately 7-14 days for a wound check. He will nonweightbearing with the use of a walker. He will take aspirin daily to prevent deep venous thrombosis. He is encouraged to contact our office if there is any increased pain, drainage, numbness or tingling in the extremity, fever greater than 101 degrees, or any other concerns. Please see medical record for additional details. GURPREET
--- NOTE | 2017-06-01 20:57 | RO ---
DATE OF PROCEDURE: 05/24/2017 PREOPERATIVE DIAGNOSES: Left posterior tibial tendon insufficiency and adult acquired flat foot deformity. POSTOPERATIVE DIAGNOSES: Left posterior tibial tendon insufficiency and adult acquired flat foot deformity. PROCEDURE: 1. Left flexor digitorum longus transfer to the navicular (CPT code 57103). 2. Right posterior calcaneal osteotomy (CPT code 03903). 3. Right lateral column lengthening (CPT code 03396). 4. Right iliac crest bone marrow aspirate (CPT code 88368). 5. Right gastrocnemius recession (CPT code 97675). 6. C-Arm of the right foot using the mini C-Arm. 7. Spring ligament repair. SURGEON: Argentina Newton MD ENTRY LEVEL STAFF ACCOUNTANT: RAMIN Smith ANESTHESIA: General endotracheal anesthesia with a popliteal nerve block. ESTIMATED BLOOD LOSS: 100 mL. COMPLICATION: A small nondisplaced medial cuneiform fracture, which was stabilized with a 2.7 mm cortical screw. CONDITION: Stable to recovery. INDICATIONS: Jasiel Boucher is a 56-year-old male who has struggled with a flat foot deformity and pain in his foot and ankle for many years. He has exhausted conservative managements, which include bracing, orthotics, use of Tylenol and other medications. He presents today for reconstruction of his flat foot deformity. Risks and benefits of this surgery were discussed with the patient in detail and include, but are not limited to, infection, blood clot, continued pain and stiffness, nonunion, malunion, or fracture, need for additional procedures. Patient understands these risks, and informed consent was obtained. DESCRIPTION OF PROCEDURE: The patient was met in the holding area, and the operative site was signed. Informed consent was signed and checked. The patient was taken to the operating room in stable condition after he underwent a popliteal nerve block. He was then positioned supine for the left side with an ipsilateral wedge pillow bump and a contralateral post. Preoperative antibiotics were given within 60 minutes of the first incision. The leg was prepped with chlorhexidine scrubs. Following this, the leg was prepped and draped in the normal sterile fashion. The iliac crest was also prepped. A Jamshidi needle was introduced between the inner and outer tables of the pelvis, and 60 mL of bone marrow aspirate was aspirated in two 30 mL syringes and sent for centrifugation. This was later mixed with bone graft to be placed at the fusion site. A tourniquet was used to exsanguinate the left lower extremity. A 3-4 cm incision was made over the posteromedial aspect of the calf. It was carried down through the skin, subcutaneous tissue, and done right at the area where the calf tapered. Once through the fascia, a longitudinal fascial incision was made and dissected was carried down bluntly behind the level between the posterior fascia and gastrocnemius and between the gastrocnemius and soleus anteriorly. The gastrocnemius fascia was easily visualized. A vaginal speculum was then introduced, and the fascia was easily visualized. This was then cut with a long-handled knife and Metzenbaum scissors to complete the most lateral edge. This gave excellent improvement in his ability to bring the ankle up to dorsiflexion. The wound was irrigated. Closure was then begun. The subcutaneous tissues were closed using #3-0 Vicryl, and the skin was run with #3-0 nylon. The first incision was made on the medial aspect of the foot. It was carried down through the skin and subcutaneous tissue. The posterior tibial tendon was then visualized and was not found to be grossly abnormal. Of note, there was no major accessory navicular and, therefore, I left the tendon alone. The spring ligament was examined and found to have a small tear. This was repaired using #2 FiberWire in a horizontal mattress fashion. Of note, the spring ligament is continuous with the deltoid ligament and helps support the ankle. Therefore, the need to assess the spring ligament or repair it is synonymous with assessing or repairing the deltoid. Therefore, in cases where I have to repair the spring ligament, I will code to repair the deltoid. Without repairing the spring ligament, the foot and the ankle can both fail and collapse. The flexor digitorum longus (FDL) was found in the floor of the posterior tibial tendon sheath. It was freed and dissected out distally passed the knot of Raul. A Mary drain was placed around the FDL, which was then transected distally to the knot of Raul. A #2 FiberWire suture was used to tie the FDL in a locking and running fashion. Dissection was then carried to the top of the navicular. A pin was placed in the dorsal to plantar direction. It was checked with x-ray in line with the pin to assure that it was out of the respective joints. A 5 mm drill was then used to drill the hole. The FDL tendon was then brought back up through the hole from the plantar to dorsal direction with the aid of the sucker tip. The FDL was tied down to the posterior tibial tendon stub at the end of the case, with the ankle in neutral and the foot in slight inversion. Attention was then turned laterally. An oblique incision was made after taking an x-ray and looking over the lateral aspect of the heel. It was carried down through the skin and subcutaneous tissue. Dissection was then carried down onto the bone. Periosteal dissection was carried up on either side. K-wires were placed to assess the level of the cut. A #40 saw blade was then used to cut across the heel. It was freed with the lamina truck spotter after being finished with an osteotome. It was slid about 10-11 mm medially. It was pinned and provisionally fixed, and x-rays were taken with a [place] view. This gave us nice correction, and the heel was found to be in neutral alignment. Over the wires, the two 4.5 mm cannulated screws were placed after making a stab incision. The appropriate depth was measured. The outer cortex was drilled and the screws were placed, giving an excellent compression. The heel stab incisions were closed at the end of the case. An incision was now made over the lateral column just plantar to the sinus tarsi approach. This was carried down to the skin and subcutaneous tissue. The peroneal tendons were protected inferiorly. The extensor digitorum brevis (EDB) was taken off the anterior calcaneus superiorly. A guidewire was placed and assessed with an AP x-ray of the foot about 12 mm proximal to the joint. This gave good position. A #38 saw blade was then used to cut across parallel to the calcaneocuboid (ML) joint. This was then spread to about 5 mm to give the best correction of the talonavicular joint as assessed on a simulated weightbearing AP radiograph of the foot. An Vishal wedge was taken from allograft, tapered slightly inferiorly as it headed laterally. It was soaked in the bone marrow aspirate from previously, and also we used DBM putty to help with healing of the allograft as well. It was compressed and then fixed with a size 20 mm, 2.7 mm claw plate. It was pinned provisionally and was checked with x-rays. Two screws were then placed. Each of these gave nice compression about the site. The wedge of the calcaneus from the medial calcaneal osteotomy was smoothed, and any excessive ledge was taken off with a rongeur. At this point, a decision was made to make a very small Cotton osteotomy about 2-3 mm. This was to help with some very mild supination of the foot. Incision was made directly over the medial cuneiform. Care was taken to avoid surrounding neurovascular structures, and the extensor hallucis longus (EHL) tendon was retracted laterally. The capsule was incised. A wire was placed in the center of the medial cuneiform joint, and its position was confirmed on AP and lateral radiographs. Using a 38 saw, Cotton osteotomy was performed. As I was distracting with a Hintermann, there was a small fracture through the mid portion of the cuneiform. At this point, the decision was made to repair this fracture and hold off on putting a graft, as the graft I was going to use was quite small and I wanted to make sure that the fracture healed in good position as to not put the patient at risk for getting 1st tarsometatarsal (TMT) arthritis. The fracture was fixed with a 2.7 mm cortical screw and found to have satisfactory alignment on both AP and lateral views. The remainder of the DBX putty was placed in the prior Cotton site. All wounds were copiously irrigated and subcutaneous closed with #3-0 interrupted Vicryl sutures. Skin was closed using #3-0 nylon in a horizontal mattress fashion. Sterile dressings were applied, as well as a well-padded splint. The patient was taken to the recovery room in stable condition. PLAN: The patient will be nonweightbearing in the left lower extremity. I will do a wound check and transition him into a fiberglass cast before he leaves the hospital. He will get 24 hours of IV antibiotics. We will re-evaluate him in the office to see if it is necessary to perform any further procedure, although it is likely this will not be necessary.
== END 2017-05-27 16:05 | disposition home or self-care (01) | DRG 501 ==
LOC: M OR 05-24 06:04 → M MS5PR 05-24 17:52
PROVIDERS: ADMIT Orthopaedic Surgery; ATTEND Orthopaedic Surgery
PROC: 0LSP0ZZ Reposition Left Lower Leg Tendon, Open Approach (ICD-10-PCS; 2017-05-24)
PROC: 0MQT0ZZ Repair Left Foot Bursa and Ligament, Open Approach (ICD-10-PCS; 2017-05-24)
PROC: 079T3ZZ Drainage of Bone Marrow, Percutaneous Approach (ICD-10-PCS; 2017-05-24)
PROC: 0LXP0ZZ Transfer Left Lower Leg Tendon, Open Approach (ICD-10-PCS; principal; 2017-05-24 07:30)
PROC: 0QHM04Z Insertion of Internal Fixation Device into Left Tarsal, Open Approach (ICD-10-PCS; 2017-05-24 07:30)
DX: M21.42 Flat foot [pes planus] (acquired), left foot (principal); Z68.41 Body mass index [BMI] 40.0-44.9, adult; I12.9 Hypertensive chronic kidney disease with stage 1 through stage 4 chronic kidney disease, or unspecified chronic kidney disease; E78.5 Hyperlipidemia, unspecified; N18.3 Chronic kidney disease, stage 3 (moderate); E66.01 Morbid (severe) obesity due to excess calories; Z96.642 Presence of left artificial hip joint; Z79.899 Other long term (current) drug therapy; Z87.891 Personal history of nicotine dependence

== ENCOUNTER 2017-06-28 15:34 | Inpatient (IN) | payer OTHER ==
[2017-06-28] MEDS: NS 500 ML IV (16:15)
[2017-06-28 16:59] LABS: BASO # 0.1 10^3/uL (0.0-0.2); BASO % 0.6 % (0.0-1.0); EOS # 0.3 10^3/uL (0.0-0.50); EOS % 1.9 % (0.0-3.0); HEMATOCRIT 38.5 % (42.0-52.0); HEMOGLOBIN 12.5 g/dl (14.0-18.0); IMMATURE GRANULOCYTE # 0.1 10^3/uL (0-0); IMMATURE GRANULOCYTE % 0.6 % (0-0); LYMPH # 1.7 10^3/uL (1.5-4.5); LYMPH % 12.7 % (24.0-44.0); MEAN CORPUSCULAR HEMOGLOBIN 30.3 pg (27.0-33.0); MEAN CORPUSCULAR HGB CONC 32.5 g/dl (32.0-36.5); MEAN CORPUSCULAR VOLUME 93.4 fl (80.0-96.0); MONO # 1.1 10^3/uL (0.0-0.8); NEUTROPHILS # 10.3 10^3/uL (1.8-7.7); NEUTROPHILS % 76.2 % (36.0-66.0); PLATELET COUNT, AUTOMATED 252 10^3/uL (150-450); RED BLOOD COUNT 4.12 10^6/uL (4.30-6.10); RED CELL DISTRIBUTION WIDTH 12.8 % (11.5-14.5); WHITE BLOOD COUNT 13.6 10^3/uL (4.0-10.0)
[2017-06-28 17:20] LABS: PROTHROMBIN TIME 17.5 SECONDS (12.4-14.5)
[2017-06-28 17:21] LABS: ANION GAP 7 MEQ/L (8-16); BLOOD UREA NITROGEN 72 MG/DL (7-18); CALCIUM LEVEL 9.3 MG/DL (8.5-10.1); CARBON DIOXIDE LEVEL 27 MEQ/L (21-32); CHLORIDE LEVEL 106 MEQ/L (98-107); CREATININE FOR GFR 2.86 MG/DL (0.70-1.30); GLOMERULAR FILTRATION RATE 24.4 (>56); GLUCOSE, FASTING 124 MG/DL (70-100); PARTIAL THROMBOPLASTIN TIME 34.9 SECONDS (26.8-37.9); SODIUM LEVEL 140 MEQ/L (136-145)
[2017-06-28 17:24] LABS: CPK CREATINE PHOSPHOKINASE 81 U/L (39-308); TROPONIN I < 0.02 NG/ML (< 0.10)
[2017-06-28 17:30] LABS: CK-MB VALUE MASS 1.6 NG/ML (0.0-3.6); MB/CK RELATIVE INDEX 1.97 (< OR =4)
[2017-06-28] MEDS: NS 1,000 ML IV ×2 (18:34→20:20)
[2017-06-28] MEDS ORDERED: oxyCODONE 5MG TAB PO (19:00)
[2017-06-28] MEDS ORDERED: HEPARIN SOD (PORCINE) 5000 UNITS/ML VIAL SC (19:00)
[2017-06-28] MEDS ORDERED: BISACODYL 5 MG TAB PO (19:00)
[2017-06-28 19:48] LABS: OSMOLALITY SERUM 316 MOSM/KG (275-295)
[2017-06-28 20:05] LABS: FREE T4 0.86 NG/DL (0.76-1.46)
[2017-06-28 20:05] LABS: FREE T3 2.6 PG/ML (2.2-4.0)
[2017-06-28] MEDS: SENOKOT S TAB PO (20:49)
[2017-06-28] MEDS: ACETAMINOPHEN 650MG ER TAB (TYLENOL ARTHRITIS) PO (21:03)
[2017-06-29 00:58] LABS: CK-MB VALUE MASS 2.1 NG/ML (0.0-3.6); CPK CREATINE PHOSPHOKINASE 92 U/L (39-308); MB/CK RELATIVE INDEX 2.28 (< OR =4); TROPONIN I < 0.02 NG/ML (< 0.10)
[2017-06-29 01:59] LABS: CHLORIDE,RANDOM URINE 47 MEQ/L; CREATININE,RANDOM URINE 85.7 MG/DL; POTASSIUM RANDOM URINE 36.2 MEQ/L; SODIUM,RANDOM URINE 40 MEQ/L; TOTAL PROTEIN,RANDOM URINE 6.4 MG/DL (0.0-12.0)
[2017-06-29 02:02] LABS: APPEARANCE, URINE CLEAR (CLEAR); BACTERIA, URINE AUTO NEGATIVE (NEGATIVE); BILIRUBIN, URINE AUTO NEGATIVE (NEGATIVE); BLOOD, URINE BLOOD NEGATIVE (NEGATIVE); COLOR, URINE YELLOW (YELLOW); GLUCOSE, URINE (UA) AUTO NEGATIVE (NEGATIVE); KETONE, URINE AUTO NEGATIVE (NEGATIVE); LEUKOCYTE ESTERASE, URINE AUTO NEGATIVE (NEGATIVE); NITRITE, URINE AUTO NEGATIVE (NEGATIVE); PROTEIN, URINE AUTO NEGATIVE (NEGATIVE); RBC, URINE AUTO 1 /HPF (0-3); SPECIFIC GRAVITY URINE AUTO 1.011 (1.002-1.035); SQUAMOUS EPITHELIAL CELL UR AU 0 /HPF (0-6); UROBILINOGEN, URINE AUTO 0.2 mg/dL (0.0-2.0); WBC, URINE AUTO 0 /HPF (0-3)
[2017-06-29 02:07] LABS: OSMOLALITY URINE 424 MOSM/KG (500-800)
[2017-06-29] MEDS: NS 1,000 ML IV ×3 (02:49→14:46)
[2017-06-29 06:15] LABS: BASO # 0.1 10^3/uL (0.0-0.2); BASO % 0.7 % (0.0-1.0); EOS # 0.3 10^3/uL (0.0-0.50); HEMATOCRIT 33.4 % (42.0-52.0); HEMOGLOBIN 10.6 g/dl (14.0-18.0); IMMATURE GRANULOCYTE % 0.4 % (0-0); LYMPH # 2.2 10^3/uL (1.5-4.5); LYMPH % 21.5 % (24.0-44.0); MEAN CORPUSCULAR HEMOGLOBIN 29.9 pg (27.0-33.0); MEAN CORPUSCULAR HGB CONC 31.7 g/dl (32.0-36.5); MEAN CORPUSCULAR VOLUME 94.1 fl (80.0-96.0); MONO % 9.9 % (0.0-5.0); NEUTROPHILS # 6.5 10^3/uL (1.8-7.7); NEUTROPHILS % 64.5 % (36.0-66.0); PLATELET COUNT, AUTOMATED 199 10^3/uL (150-450); RED BLOOD COUNT 3.55 10^6/uL (4.30-6.10); RED CELL DISTRIBUTION WIDTH 12.8 % (11.5-14.5); WHITE BLOOD COUNT 10.1 10^3/uL (4.0-10.0)
[2017-06-29 06:35] LABS: C REACTIVE PROTEIN QUANTITATIV 0.85 MG/DL (0.00-0.30)
[2017-06-29 06:36] LABS: ANION GAP 7 MEQ/L (8-16); BLOOD UREA NITROGEN 64 MG/DL (7-18); CALCIUM LEVEL 8.8 MG/DL (8.5-10.1); CARBON DIOXIDE LEVEL 28 MEQ/L (21-32); CHLORIDE LEVEL 105 MEQ/L (98-107); CREATININE FOR GFR 2.39 MG/DL (0.70-1.30); GLUCOSE, FASTING 102 MG/DL (70-100); POTASSIUM SERUM 4.5 MEQ/L (3.5-5.1); SODIUM LEVEL 140 MEQ/L (136-145)
[2017-06-29] MEDS: ASCORBIC ACID 500 MG TAB PO (10:00)
[2017-06-29] MEDS: MULTIVITAMINS/MINERALS THERAP 1 TAB PO (10:00)
[2017-06-29] MEDS: APIXABAN 2.5 MG TAB (ELIQUIS) PO ×2 (10:00→22:25)
[2017-06-29] MEDS: SENOKOT S TAB PO ×2 (10:00→22:24)
[2017-06-29] MEDS: ISOSORBIDE MON. (IMDUR) 30 MG XR TAB PO (10:00)
[2017-06-29] MEDS: amLODIPine 5 MG TAB PO ×2 (10:01→12:41)
[2017-06-29] MEDS: VITAMIN B COMPLEX/VIT C CAP PO (10:01)
[2017-06-29] MEDS: ACETAMINOPHEN 650MG ER TAB (TYLENOL ARTHRITIS) PO ×2 (10:01→22:25)
[2017-06-29] MEDS ORDERED: **hydrALAZINE** 10 MG TAB PO (14:00)
[2017-06-30] MEDS: NS 1,000 ML IV ×2 (00:19→09:11)
[2017-06-30 06:01] LABS: BASO % 0.6 % (0.0-1.0); EOS # 0.3 10^3/uL (0.0-0.50); EOS % 4.4 % (0.0-3.0); HEMOGLOBIN 10.7 g/dl (14.0-18.0); IMMATURE GRANULOCYTE % 0.6 % (0-0); LYMPH # 1.7 10^3/uL (1.5-4.5); LYMPH % 23.8 % (24.0-44.0); MEAN CORPUSCULAR HEMOGLOBIN 31.2 pg (27.0-33.0); MEAN CORPUSCULAR HGB CONC 32.4 g/dl (32.0-36.5); MEAN CORPUSCULAR VOLUME 96.2 fl (80.0-96.0); MONO # 0.7 10^3/uL (0.0-0.8); MONO % 9.5 % (0.0-5.0); NEUTROPHILS # 4.3 10^3/uL (1.8-7.7); NEUTROPHILS % 61.1 % (36.0-66.0); PLATELET COUNT, AUTOMATED 178 10^3/uL (150-450); RED BLOOD COUNT 3.43 10^6/uL (4.30-6.10); RED CELL DISTRIBUTION WIDTH 12.8 % (11.5-14.5)
[2017-06-30 06:18] LABS: ANION GAP 4 MEQ/L (8-16); BLOOD UREA NITROGEN 41 MG/DL (7-18); C REACTIVE PROTEIN QUANTITATIV 0.77 MG/DL (0.00-0.30); CALCIUM LEVEL 8.9 MG/DL (8.5-10.1); CARBON DIOXIDE LEVEL 29 MEQ/L (21-32); CHLORIDE LEVEL 110 MEQ/L (98-107); CREATININE FOR GFR 1.76 MG/DL (0.70-1.30); GLOMERULAR FILTRATION RATE 42.7 (>56); GLUCOSE, FASTING 96 MG/DL (70-100); POTASSIUM SERUM 4.5 MEQ/L (3.5-5.1); SODIUM LEVEL 143 MEQ/L (136-145)
[2017-06-30] MEDS: ACETAMINOPHEN 650MG ER TAB (TYLENOL ARTHRITIS) PO (08:34)
[2017-06-30] MEDS: SENOKOT S TAB PO (08:34)
[2017-06-30] MEDS: ASCORBIC ACID 500 MG TAB PO (08:34)
[2017-06-30] MEDS: APIXABAN 2.5 MG TAB (ELIQUIS) PO (08:34)
[2017-06-30] MEDS: MULTIVITAMINS/MINERALS THERAP 1 TAB PO (08:34)
[2017-06-30] MEDS: VITAMIN B COMPLEX/VIT C CAP PO (08:34)
[2017-06-30] MEDS: amLODIPine 10 MG TAB PO (08:35)
[2017-06-30] MEDS: ISOSORBIDE MON. (IMDUR) 30 MG XR TAB PO (08:35)
== END 2017-06-30 12:31 | disposition home or self-care (01) | DRG 312 ==
LOC: M PCU 06-29 02:44 → M ED 15:34 → M ED INP 19:55
DX: I95.1 Orthostatic hypotension (principal); N17.9 Acute kidney failure, unspecified; N18.3 Chronic kidney disease, stage 3 (moderate); I12.9 Hypertensive chronic kidney disease with stage 1 through stage 4 chronic kidney disease, or unspecified chronic kidney disease; I25.10 Atherosclerotic heart disease of native coronary artery without angina pectoris; M19.90 Unspecified osteoarthritis, unspecified site; E78.5 Hyperlipidemia, unspecified; E55.9 Vitamin D deficiency, unspecified; E66.01 Morbid (severe) obesity due to excess calories; G47.33 Obstructive sleep apnea (adult) (pediatric); I45.10 Unspecified right bundle-branch block; Z79.899 Other long term (current) drug therapy; Z88.6 Allergy status to analgesic agent; Z88.8 Allergy status to other drugs, medicaments and biological substances; Z87.891 Personal history of nicotine dependence; Z98.890 Other specified postprocedural states

== ENCOUNTER → 2017-10-31 | Outpatient (REF) | payer OTHER ==
[2017-10-31 14:41] LABS: BASO # 0.1 10^3/uL (0.0-0.2); BASO % 0.7 % (0.0-1.0); EOS # 0.2 10^3/uL (0.0-0.50); EOS % 2.7 % (0.0-3.0); HEMATOCRIT 43.7 % (42.0-52.0); HEMOGLOBIN 13.7 g/dl (13.5-17.5); IMMATURE GRANULOCYTE % 0.3 % (0-3.0); LYMPH # 1.5 10^3/uL (1.5-4.5); LYMPH % 17.8 % (24.0-44.0); MEAN CORPUSCULAR HEMOGLOBIN 29.5 pg (27.0-33.0); MEAN CORPUSCULAR HGB CONC 31.4 g/dl (32.0-36.5); MONO # 0.7 10^3/uL (0.0-0.8); MONO % 8.1 % (0.0-5.0); NEUTROPHILS # 6.1 10^3/uL (1.8-7.7); NEUTROPHILS % 70.4 % (36.0-66.0); PLATELET COUNT, AUTOMATED 216 10^3/uL (150-450); RED BLOOD COUNT 4.65 10^6/uL (4.30-6.10); RED CELL DISTRIBUTION WIDTH 13.5 % (11.5-14.5); WHITE BLOOD COUNT 8.6 10^3/uL (4.0-10.0)
[2017-10-31 15:11] LABS: ALBUMIN/GLOBULIN RATIO 1.05 (1.00-1.93); ALKALINE PHOSPHATASE 106 U/L (45-117); ALT/SGPT 19 U/L (12-78); ANION GAP 5 MEQ/L (8-16); AST/SGOT 14 U/L (7-37); BILIRUBIN,TOTAL 0.3 MG/DL (0.2-1.0); BLOOD UREA NITROGEN 35 MG/DL (7-18); CALCIUM LEVEL 8.9 MG/DL (8.5-10.1); CARBON DIOXIDE LEVEL 30 MEQ/L (21-32); CHLORIDE LEVEL 110 MEQ/L (98-107); CHOLESTEROL LEVEL 187 MG/DL (<200); CHOLESTEROL RISK RATIO 4.348 (<5); FERRITIN 53 NG/ML (26-388); GLUCOSE, FASTING 98 MG/DL (70-100); HDL CHOLESTEROL 43 MG/DL (>40); IRON (FE) 64 UG/DL (65-175); LDL CHOLESTEROL 116.8 MG/DL (<100); NON-HDL-C 144 MG/DL; PERCENT SATURATION 17.6 % (19.7-50.0); POTASSIUM SERUM 4.9 MEQ/L (3.5-5.1); SODIUM LEVEL 145 MEQ/L (136-145); TOTAL IRON BINDING CAPACITY 364 UG/DL (250-450); TOTAL PROTEIN 7.8 GM/DL (6.4-8.2); TRIGLYCERIDES LEVEL 136 MG/DL (<150)
[2017-10-31 15:20] LABS: VITAMIN B12 LEVEL 1155 PG/ML (247-911)
== END ==
LOC: M SFHCLACO 08:13
DX: D53.9 Nutritional anemia, unspecified (principal); I10 Essential (primary) hypertension; E78.2 Mixed hyperlipidemia

== ENCOUNTER 2017-11-24 05:40 | Inpatient (IN) | payer OTHER ==
[2017-11-24] MEDS ORDERED: LIDOCAINE 1% MDV 20ML VIAL SQ (05:45)
[2017-11-24] MEDS: ACETAMINOPHEN 500 MG TAB PO (06:30)
[2017-11-24] MEDS ORDERED: MIDAZOLAM INJ 2 MG/2 ML VIAL (J2250) As Ordered ×2 (06:45→08:19)
[2017-11-24] MEDS ORDERED: fentaNYL 100 MCG/2 ML INJECTION (J3010) As Ordered ×2 (06:45→08:19)
[2017-11-24] MEDS: LR 1,000 ML IV ×4 (06:46→20:15)
[2017-11-24] MEDS: fentaNYL 100 MCG/2 ML INJECTION (J3010) IV (07:06)
[2017-11-24] MEDS: MIDAZOLAM INJ 2 MG/2 ML VIAL (J2250) IV (07:06)
[2017-11-24] MEDS: EPINEPHrine INJ 1 MG/ML 1ML AMP As Ordered (08:10)
[2017-11-24] MEDS: TRANEXAMIC ACID 100 MG/ML 10ML VIAL As Ordered (08:11)
[2017-11-24] MEDS: ceFAZolin 1GM INJ (J0690 PER 500MG) As Ordered (08:12)
[2017-11-24] MEDS ORDERED: ePHEDrine SULFATE 25 MG/5 ML(5MG/ML) SYRINGE As Ordered (08:19)
[2017-11-24] MEDS ORDERED: ONDANSETRON 4MG/2ML VIAL (J2405) As Ordered (08:19)
[2017-11-24] MEDS ORDERED: LIDOCAINE 2% INJ 100 MG/5 ML SDV (FOR ANES.) As Ordered (08:19)
[2017-11-24] MEDS ORDERED: BUPIVACAINE/DEXTROSE 0.75% 2 ML AMP As Ordered (08:19)
[2017-11-24] MEDS ORDERED: PROPOFOL 500 MG/50 ML VIAL As Ordered ×2 (08:19→08:27)
[2017-11-24] MEDS ORDERED: dexameTHASONE 10 MG/1 ML VIAL PRES.FREE (J1100) (08:23)
[2017-11-24] MEDS ORDERED: ROPIvacaine 0.5% 30 ML INJECTION (J2795 PER 1MG) (08:23)
[2017-11-24] MEDS: BUPIVACAINE LIPOSOME/PF 1.3% 20 ML VIAL (13.3MG/ML)(EXPAREL) As Ordered (09:10)
[2017-11-24] MEDS: BUPIVACAINE HCL 0.25% 10 ML VIAL As Ordered (09:12)
[2017-11-24] MEDS ORDERED: MORPHINE 1MG/ML IN 0.9% NACL 100ML IV BAG As Ordered (09:18)
[2017-11-24] MEDS ORDERED: ACETAMINOPHEN TAB 650MG DOSE (2X325MG) PO (10:00)
[2017-11-24] MEDS ORDERED: ONDANSETRON 4MG/2ML VIAL (J2405) IV ×2 (10:00→10:15)
[2017-11-24] MEDS ORDERED: FLEET ENEMA PR (10:00)
[2017-11-24] MEDS ORDERED: fentaNYL 100 MCG/2 ML INJECTION (J3010) IV (10:00)
[2017-11-24] MEDS ORDERED: NALOXONE INJ 0.4 MG/1 ML VIAL (J2310) IV (10:15)
[2017-11-24] MEDS ORDERED: EPIDURAL/PCA KEYS XX (10:15)
[2017-11-24] MEDS ORDERED: NALBUPHINE HCL 10 MG/ML AMP (J2300) IV (10:15)
[2017-11-24] MEDS ORDERED: diphenhydrAMINE INJ 50MG/ML VIAL (J1200) IV (10:15)
[2017-11-24] MEDS: ISOSORBIDE MON. (IMDUR) 30 MG XR TAB PO (13:08)
[2017-11-25] MEDS: MORPHINE 1MG/ML IN 0.9% NACL 100ML IV BAG IV (02:06)
[2017-11-25 07:23] LABS: HEMATOCRIT 38.4 % (42.0-52.0); HEMOGLOBIN 12.2 g/dl (13.5-17.5); MEAN CORPUSCULAR HEMOGLOBIN 29.5 pg (27.0-33.0); MEAN CORPUSCULAR HGB CONC 31.8 g/dl (32.0-36.5); MEAN CORPUSCULAR VOLUME 92.8 fl (80.0-96.0); PLATELET COUNT, AUTOMATED 216 10^3/uL (150-450); RED BLOOD COUNT 4.14 10^6/uL (4.30-6.10); RED CELL DISTRIBUTION WIDTH 13.8 % (11.5-14.5); WHITE BLOOD COUNT 15.7 10^3/uL (4.0-10.0)
[2017-11-25 07:42] LABS: ANION GAP 9 MEQ/L (8-16); BLOOD UREA NITROGEN 44 MG/DL (7-18); CALCIUM LEVEL 8.4 MG/DL (8.5-10.1); CARBON DIOXIDE LEVEL 27 MEQ/L (21-32); CHLORIDE LEVEL 105 MEQ/L (98-107); CREATININE FOR GFR 2.33 MG/DL (0.70-1.30); GLOMERULAR FILTRATION RATE 30.8 (>56); GLUCOSE, FASTING 113 MG/DL (70-100); POTASSIUM SERUM 4.6 MEQ/L (3.5-5.1); SODIUM LEVEL 141 MEQ/L (136-145)
[2017-11-25] MEDS: SENOKOT S TAB PO ×2 (09:25→20:14)
[2017-11-25] MEDS: amLODIPine 10 MG TAB PO (09:25)
[2017-11-25] MEDS: MOM 30ML SUSPENSION UDC PO (09:26)
[2017-11-25] MEDS: ISOSORBIDE MON. (IMDUR) 30 MG XR TAB PO (09:26)
[2017-11-25] MEDS: MIRALAX *UNIT DOSE* 17GM PACKET PO (09:26)
[2017-11-25] MEDS: PERCOCET 5MG/325MG TAB PO ×2 (09:26→20:16)
[2017-11-25] MEDS: ONDANSETRON 4 MG TAB (S0181) PO (10:19)
[2017-11-25] MEDS: ONDANSETRON 4MG/2ML VIAL (J2405) IV ×2 (12:21→15:31)
[2017-11-25] MEDS ORDERED: ONDANSETRON 4MG/2ML VIAL (J2405) IV (15:15)
[2017-11-25] MEDS: LR 1,000 ML IV (15:23)
[2017-11-25] MEDS: RIVAROXABAN 10 MG TAB (XARELTO) PO (17:17)
[2017-11-26] MEDS: PERCOCET 5MG/325MG TAB PO ×3 (01:57→14:42)
[2017-11-26] MEDS: LR 1,000 ML IV (03:26)
[2017-11-26 06:43] LABS: HEMATOCRIT 36.2 % (42.0-52.0); HEMOGLOBIN 11.7 g/dl (13.5-17.5); MEAN CORPUSCULAR HEMOGLOBIN 29.7 pg (27.0-33.0); MEAN CORPUSCULAR HGB CONC 32.3 g/dl (32.0-36.5); MEAN CORPUSCULAR VOLUME 91.9 fl (80.0-96.0); PLATELET COUNT, AUTOMATED 179 10^3/uL (150-450); RED BLOOD COUNT 3.94 10^6/uL (4.30-6.10); RED CELL DISTRIBUTION WIDTH 13.7 % (11.5-14.5); WHITE BLOOD COUNT 10.9 10^3/uL (4.0-10.0)
[2017-11-26 07:05] LABS: ANION GAP 5 MEQ/L (8-16); BLOOD UREA NITROGEN 32 MG/DL (7-18); CALCIUM LEVEL 8.5 MG/DL (8.5-10.1); CARBON DIOXIDE LEVEL 32 MEQ/L (21-32); CHLORIDE LEVEL 105 MEQ/L (98-107); CREATININE FOR GFR 1.71 MG/DL (0.70-1.30); GLUCOSE, FASTING 107 MG/DL (70-100); POTASSIUM SERUM 4.3 MEQ/L (3.5-5.1); SODIUM LEVEL 142 MEQ/L (136-145)
[2017-11-26] MEDS: MOM 30ML SUSPENSION UDC PO (08:34)
[2017-11-26] MEDS: MIRALAX *UNIT DOSE* 17GM PACKET PO (08:34)
[2017-11-26] MEDS: SENOKOT S TAB PO (08:34)
[2017-11-26] MEDS: ISOSORBIDE MON. (IMDUR) 30 MG XR TAB PO (08:35)
[2017-11-26] MEDS: amLODIPine 10 MG TAB PO (08:35)
== END 2017-11-26 15:15 | disposition home or self-care (01) | DRG 470 ==
LOC: M OR 05:40 → M MS5PR 11:56
PROC: 0SRC0J9 Replacement of Right Knee Joint with Synthetic Substitute, Cemented, Open Approach (ICD-10-PCS; principal; 2017-11-24 07:30)
DX: M17.11 Unilateral primary osteoarthritis, right knee (principal); Z68.42 Body mass index [BMI] 45.0-49.9, adult; I13.10 Hypertensive heart and chronic kidney disease without heart failure, with stage 1 through stage 4 chronic kidney disease, or unspecified chronic kidney disease; R26.89 Other abnormalities of gait and mobility; N18.3 Chronic kidney disease, stage 3 (moderate); G47.33 Obstructive sleep apnea (adult) (pediatric); K42.9 Umbilical hernia without obstruction or gangrene; E66.01 Morbid (severe) obesity due to excess calories; Z96.642 Presence of left artificial hip joint; Z79.899 Other long term (current) drug therapy; Z88.8 Allergy status to other drugs, medicaments and biological substances; Z87.891 Personal history of nicotine dependence

== ENCOUNTER → 2018-01-18 | Outpatient (REF) | payer OTHER ==
[2018-01-18 15:55] LABS: BASO # 0.1 10^3/uL (0.0-0.2); BASO % 0.7 % (0.0-1.0); EOS # 0.2 10^3/uL (0.0-0.50); EOS % 2.2 % (0.0-3.0); HEMATOCRIT 41.7 % (42.0-52.0); HEMOGLOBIN 13.3 g/dl (13.5-17.5); IMMATURE GRANULOCYTE % 0.7 % (0-3.0); LYMPH # 1.7 10^3/uL (1.5-4.5); LYMPH % 16.2 % (24.0-44.0); MEAN CORPUSCULAR HEMOGLOBIN 29.7 pg (27.0-33.0); MEAN CORPUSCULAR HGB CONC 31.9 g/dl (32.0-36.5); MEAN CORPUSCULAR VOLUME 93.1 fl (80.0-96.0); MONO # 0.9 10^3/uL (0.0-0.8); MONO % 8.2 % (0.0-5.0); NEUTROPHILS # 7.6 10^3/uL (1.8-7.7); PLATELET COUNT, AUTOMATED 271 10^3/uL (150-450); RED BLOOD COUNT 4.48 10^6/uL (4.30-6.10); RED CELL DISTRIBUTION WIDTH 14.5 % (11.5-14.5); WHITE BLOOD COUNT 10.5 10^3/uL (4.0-10.0)
[2018-01-18 16:13] LABS: C REACTIVE PROTEIN QUANTITATIV 0.72 MG/DL (0.00-0.30)
[2018-01-18 16:21] LABS: TOTAL 25(OH) VITAMIN D 27.2 NG/ML (30.0-100.0)
[2018-01-18 16:34] LABS: ERYTHROCYTE SEDIMENTATION RATE 20 mm/hr (0-20)
== END ==
LOC: M LABDRAW1 12:58
DX: Z47.89 Encounter for other orthopedic aftercare (principal)
CPT/HCPCS: 82306

== ENCOUNTER → 2018-05-01 | Outpatient (REF) | payer OTHER ==
[2018-05-01 13:36] LABS: BASO # 0.1 10^3/uL (0.0-0.2); BASO % 0.8 % (0.0-1.0); EOS # 0.3 10^3/uL (0.0-0.50); EOS % 2.9 % (0.0-3.0); HEMATOCRIT 42.6 % (42.0-52.0); HEMOGLOBIN 13.8 g/dl (13.5-17.5); IMMATURE GRANULOCYTE % 0.7 % (0-3.0); LYMPH # 1.8 10^3/uL (1.5-4.5); LYMPH % 16.9 % (24.0-44.0); MEAN CORPUSCULAR HEMOGLOBIN 30.4 pg (27.0-33.0); MEAN CORPUSCULAR HGB CONC 32.4 g/dl (32.0-36.5); MEAN CORPUSCULAR VOLUME 93.8 fl (80.0-96.0); MONO # 0.9 10^3/uL (0.0-0.8); MONO % 8.3 % (0.0-5.0); NEUTROPHILS # 7.4 10^3/uL (1.8-7.7); NEUTROPHILS % 70.4 % (36.0-66.0); PLATELET COUNT, AUTOMATED 235 10^3/uL (150-450); RED BLOOD COUNT 4.54 10^6/uL (4.30-6.10); RED CELL DISTRIBUTION WIDTH 13.8 % (11.5-14.5); WHITE BLOOD COUNT 10.5 10^3/uL (4.0-10.0)
[2018-05-01 13:43] LABS: ALBUMIN 3.5 GM/DL (3.2-5.2); ALBUMIN/GLOBULIN RATIO 0.88 (1.00-1.93); ALKALINE PHOSPHATASE 108 U/L (45-117); ALT/SGPT 29 U/L (12-78); ANION GAP 6 MEQ/L (8-16); AST/SGOT 14 U/L (7-37); BILIRUBIN,TOTAL 0.3 MG/DL (0.2-1.0); BLOOD UREA NITROGEN 38 MG/DL (7-18); CALCIUM LEVEL 8.6 MG/DL (8.5-10.1); CARBON DIOXIDE LEVEL 30 MEQ/L (21-32); CHLORIDE LEVEL 107 MEQ/L (98-107); CHOLESTEROL LEVEL 196 MG/DL (<200); CREATININE FOR GFR 1.88 MG/DL (0.70-1.30); FERRITIN 68 NG/ML (26-388); GLOMERULAR FILTRATION RATE 39.4 (>56); GLUCOSE, FASTING 95 MG/DL (70-100); HDL CHOLESTEROL 41 MG/DL (>40); IRON (FE) 71 UG/DL (65-175); LDL CHOLESTEROL 127 MG/DL (<100); NON-HDL-C 155 MG/DL; PERCENT SATURATION 20.5 % (19.7-50.0); POTASSIUM SERUM 4.4 MEQ/L (3.5-5.1); SODIUM LEVEL 143 MEQ/L (136-145); TOTAL IRON BINDING CAPACITY 346 UG/DL (250-450); TOTAL PROTEIN 7.5 GM/DL (6.4-8.2); TRIGLYCERIDES LEVEL 139 MG/DL (<150)
== END ==
LOC: M LABDRWAD 13:18
DX: E78.2 Mixed hyperlipidemia (principal)
CPT/HCPCS: 83550

== ENCOUNTER → 2019-01-08 | Outpatient (REF) | payer OTHER ==
[~2019-01-08] MED LIST changes: -/WARF25TA; -/WARF5TA; +AMLO10TA5 PO; +COUM1TAB17; +COUM1TAB18; -DRIS50002 PO; +DRIS50003 PO; +FLAXOIL PO; +OXYC10TA12 PO; +PERC5TAB12 PO; +VITA400C7 PO; +XARE10TA PO
[2019-01-08 14:43] LABS: BASO # 0.1 10^3/uL (0.0-0.2); EOS # 0.2 10^3/uL (0.0-0.50); EOS % 2.5 % (0.0-3.0); HEMOGLOBIN 12.8 g/dl (13.5-17.5); LYMPH # 1.3 10^3/uL (1.5-4.5); LYMPH % 18.8 % (24.0-44.0); MEAN CORPUSCULAR HEMOGLOBIN 31.1 pg (27.0-33.0); MEAN CORPUSCULAR VOLUME 97.3 fl (80.0-96.0); MONO # 0.6 10^3/uL (0.0-0.8); MONO % 8.7 % (0.0-5.0); NEUTROPHILS # 4.9 10^3/uL (1.8-7.7); NEUTROPHILS % 68.9 % (36.0-66.0); PLATELET COUNT, AUTOMATED 185 10^3/uL (150-450); RED BLOOD COUNT 4.11 10^6/uL (4.30-6.10); WHITE BLOOD COUNT 7.1 10^3/uL (4.0-10.0)
[2019-01-08 14:49] LABS: BILIRUBIN,TOTAL 0.4 MG/DL (0.2-1.0); CALCIUM LEVEL 9.4 MG/DL (8.5-10.1); CREATININE FOR GFR 1.89 MG/DL (0.70-1.30); GLOMERULAR FILTRATION RATE 39.1 (>56); POTASSIUM SERUM 4.4 MEQ/L (3.5-5.1)
[2019-01-08 14:50] LABS: ALBUMIN 3.8 GM/DL (3.2-5.2); CHOLESTEROL RISK RATIO 3.46 (<5); PERCENT SATURATION 21.8 % (19.7-50.0); TOTAL PROTEIN 7.2 GM/DL (6.4-8.2)
== END ==
LOC: M SFHCADAM 09:24
PROVIDERS: ATTEND Physician Assistant
DX: E78.2 Mixed hyperlipidemia (principal)

== ENCOUNTER → 2019-01-08 | Outpatient (REF) | payer OTHER ==
[2019-01-08 14:47] LABS: BASO # 0.1 10^3/uL (0.0-0.2); BASO % 0.7 % (0.0-1.0); EOS # 0.2 10^3/uL (0.0-0.50); EOS % 2.6 % (0.0-3.0); HEMATOCRIT 41.6 % (42.0-52.0); HEMOGLOBIN 13.3 g/dl (13.5-17.5); LYMPH # 1.3 10^3/uL (1.5-4.5); LYMPH % 18.1 % (24.0-44.0); MEAN CORPUSCULAR HEMOGLOBIN 31.9 pg (27.0-33.0); MEAN CORPUSCULAR VOLUME 99.8 fl (80.0-96.0); MONO # 0.6 10^3/uL (0.0-0.8); MONO % 8.7 % (0.0-5.0); NEUTROPHILS # 4.8 10^3/uL (1.8-7.7); NEUTROPHILS % 69.6 % (36.0-66.0); PLATELET COUNT, AUTOMATED 189 10^3/uL (150-450); RED BLOOD COUNT 4.17 10^6/uL (4.30-6.10); WHITE BLOOD COUNT 6.9 10^3/uL (4.0-10.0)
[2019-01-08 14:53] LABS: MAGNESIUM LEVEL 2.4 MG/DL (1.8-2.4); PHOSPHORUS LEVEL 3.7 MG/DL (2.5-4.9)
[2019-01-08 15:48] LABS: TOTAL 25(OH) VITAMIN D 48.3 NG/ML (30.0-100.0)
== END ==
LOC: M LABDRWAD 12:34
PROVIDERS: ATTEND Physician Assistant
DX: K91.2 Postsurgical malabsorption, not elsewhere classified (principal); Z98.84 Bariatric surgery status; E55.9 Vitamin D deficiency, unspecified

== ENCOUNTER → 2019-07-23 | Outpatient (REF) | payer OTHER ==
[2019-07-23 13:20] LABS: BASO # 0.1 10^3/uL (0.0-0.2); BASO % 1.1 % (0.0-1.0); EOS # 0.3 10^3/uL (0.0-0.5); EOS % 4.7 % (0.0-3.0); HEMATOCRIT 42.5 % (42.0-52.0); HEMOGLOBIN 13.5 g/dl (13.5-17.5); LYMPH # 1.6 10^3/uL (1.5-5.0); LYMPH % 29.1 % (24.0-44.0); MEAN CORPUSCULAR HEMOGLOBIN 31.1 pg (27.0-33.0); MEAN CORPUSCULAR HGB CONC 31.8 g/dl (32.0-36.5); MEAN CORPUSCULAR VOLUME 97.9 fl (80.0-96.0); MONO # 0.5 10^3/uL (0.0-0.8); MONO % 10.1 % (0.0-5.0); NEUTROPHILS # 2.9 10^3/uL (1.5-8.5); NEUTROPHILS % 54.6 % (36.0-66.0); PLATELET COUNT, AUTOMATED 179 10^3/uL (150-450); RED BLOOD COUNT 4.34 10^6/uL (4.30-6.10); WHITE BLOOD COUNT 5.3 10^3/uL (4.0-10.0)
[2019-07-23 13:27] LABS: HEMATOCRIT 42.5 % (42.0-52.0)
[2019-07-23 13:30] LABS: ALT/SGPT 42 U/L (12-78); BILIRUBIN,TOTAL 0.4 MG/DL (0.2-1.0); BLOOD UREA NITROGEN 28 MG/DL (7-18); CARBON DIOXIDE LEVEL 32 MEQ/L (21-32); CHLORIDE LEVEL 107 MEQ/L (98-107); CREATININE FOR GFR 1.64 MG/DL (0.70-1.30); FERRITIN 112 NG/ML (26-388); GLUCOSE, FASTING 92 MG/DL (70-100); IRON (FE) 68 UG/DL (65-175); MAGNESIUM LEVEL 2.4 MG/DL (1.8-2.4); PERCENT SATURATION 19.8 % (19.7-50.0); PHOSPHORUS LEVEL 4.1 MG/DL (2.5-4.9); POTASSIUM SERUM 4.5 MEQ/L (3.5-5.1); SODIUM LEVEL 142 MEQ/L (136-145); TOTAL IRON BINDING CAPACITY 343 UG/DL (250-450); TOTAL PROTEIN 7.7 GM/DL (6.4-8.2)
[2019-07-23 13:38] LABS: TOTAL 25(OH) VITAMIN D 51.4 NG/ML (30.0-100.0); VITAMIN B12 LEVEL > 2000 PG/ML (247-911)
[2019-07-23 14:57] LABS: HEMOGLOBIN A1c 5.5 %
== END ==
LOC: M LABDRWAD 12:50
PROVIDERS: ATTEND Physician Assistant
DX: K91.2 Postsurgical malabsorption, not elsewhere classified (principal); Z98.84 Bariatric surgery status; E55.9 Vitamin D deficiency, unspecified

== ENCOUNTER → 2019-09-23 | Outpatient (REF) | payer OTHER ==
[~2019-09-23] MED LIST changes: +VITA-243 PO; -VITA500T PO
[2019-09-23 14:30] LABS: BASO # 0.1 10^3/uL (0.0-0.2); BASO % 1.2 % (0.0-1.0); EOS # 0.2 10^3/uL (0.0-0.5); EOS % 3.6 % (0.0-3.0); HEMATOCRIT 40.4 % (42.0-52.0); HEMOGLOBIN 13.1 g/dl (13.5-17.5); LYMPH # 1.5 10^3/uL (1.5-5.0); LYMPH % 26.1 % (24.0-44.0); MEAN CORPUSCULAR HEMOGLOBIN 31.8 pg (27.0-33.0); MEAN CORPUSCULAR HGB CONC 32.4 g/dl (32.0-36.5); MEAN CORPUSCULAR VOLUME 98.1 fl (80.0-96.0); MONO # 0.5 10^3/uL (0.0-0.8); NEUTROPHILS # 3.5 10^3/uL (1.5-8.5); NEUTROPHILS % 59.9 % (36.0-66.0); PLATELET COUNT, AUTOMATED 171 10^3/uL (150-450); RED BLOOD COUNT 4.12 10^6/uL (4.30-6.10); WHITE BLOOD COUNT 5.9 10^3/uL (4.0-10.0)
[2019-09-23 14:35] LABS: ALBUMIN 3.6 GM/DL (3.2-5.2); BILIRUBIN,TOTAL 0.4 MG/DL (0.2-1.0); CALCIUM LEVEL 8.7 MG/DL (8.5-10.1); CHOLESTEROL RISK RATIO 2.983 (<5); CREATININE FOR GFR 1.8 MG/DL (0.70-1.30); GLOMERULAR FILTRATION RATE 41.3 (>56); PERCENT SATURATION 30.7 % (19.7-50.0); POTASSIUM SERUM 4.3 MEQ/L (3.5-5.1); TOTAL PROTEIN 6.9 GM/DL (6.4-8.2)
== END ==
LOC: M SFHCADAM 09:09
PROVIDERS: ATTEND Physician Assistant
DX: E61.1 Iron deficiency (principal); I12.9 Hypertensive chronic kidney disease with stage 1 through stage 4 chronic kidney disease, or unspecified chronic kidney disease; N18.3 Chronic kidney disease, stage 3 (moderate); E78.2 Mixed hyperlipidemia

== ENCOUNTER → 2020-01-24 | Outpatient (REF) | payer OTHER ==
[~2020-01-24] MED LIST changes: +ACET650T61 PO; -AMLO10TA5 PO; +AMLO1TAB25 PO; -TYLE650T35 PO
[2020-01-24 19:15] LABS: BASO # 0.1 10^3/uL (0.0-0.2); EOS # 0.2 10^3/uL (0.0-0.5); EOS % 2.6 % (0.0-3.0); HEMATOCRIT 36.4 % (42.0-52.0); HEMOGLOBIN 11.8 g/dl (13.5-17.5); LYMPH % 25.4 % (24.0-44.0); MEAN CORPUSCULAR HEMOGLOBIN 32.2 pg (27.0-33.0); MEAN CORPUSCULAR HGB CONC 32.4 g/dl (32.0-36.5); MEAN CORPUSCULAR VOLUME 99.2 fl (80.0-96.0); MONO # 0.6 10^3/uL (0.0-0.8); MONO % 8.1 % (0.0-5.0); NEUTROPHILS # 4.9 10^3/uL (1.5-8.5); NEUTROPHILS % 62.8 % (36.0-66.0); PLATELET COUNT, AUTOMATED 168 10^3/uL (150-450); RED BLOOD COUNT 3.67 10^6/uL (4.30-6.10); WHITE BLOOD COUNT 7.8 10^3/uL (4.0-10.0)
[2020-01-24 19:22] LABS: HEMOGLOBIN A1c 5.4 %
[2020-01-24 20:24] LABS: ALBUMIN 3.7 GM/DL (3.2-5.2); BILIRUBIN,TOTAL 0.4 MG/DL (0.2-1.0); CALCIUM LEVEL 8.8 MG/DL (8.8-10.2); CREATININE FOR GFR 1.58 MG/DL (0.70-1.30); FOLATE 14.2 NG/ML; GLOMERULAR FILTRATION RATE 47.9 (>49); MAGNESIUM LEVEL 2.2 MG/DL (1.8-2.4); PERCENT SATURATION 27.2 % (19.7-50.0); PHOSPHORUS LEVEL 3.9 MG/DL (2.5-4.9); POTASSIUM SERUM 4.5 MEQ/L (3.5-5.1); TOTAL 25(OH) VITAMIN D 50.4 NG/ML (30.0-100.0); TOTAL PROTEIN 6.7 GM/DL (6.4-8.2)
== END ==
LOC: M LABDRWAD 16:47
PROVIDERS: ATTEND Physician Assistant
DX: K91.2 Postsurgical malabsorption, not elsewhere classified (principal); Z98.84 Bariatric surgery status; E55.9 Vitamin D deficiency, unspecified; Z86.39 Personal history of other endocrine, nutritional and metabolic disease

== ENCOUNTER → 2020-03-31 | Outpatient (REF) | payer OTHER ==
[2020-03-31 13:14] LABS: ALBUMIN 3.7 GM/DL (3.2-5.2); BILIRUBIN,TOTAL 0.5 MG/DL (0.2-1.0); CALCIUM LEVEL 9.6 MG/DL (8.8-10.2); CHOLESTEROL RISK RATIO 2.485 (<5); CREATININE FOR GFR 1.43 MG/DL (0.70-1.30); GLOMERULAR FILTRATION RATE 53.7 (>49); TOTAL PROTEIN 6.7 GM/DL (6.4-8.2)
== END ==
LOC: M SFHCADAM 08:36
PROVIDERS: ATTEND Physician Assistant
DX: I12.9 Hypertensive chronic kidney disease with stage 1 through stage 4 chronic kidney disease, or unspecified chronic kidney disease (principal); N18.3 Chronic kidney disease, stage 3 (moderate); E78.2 Mixed hyperlipidemia; E61.1 Iron deficiency

== ENCOUNTER → 2020-08-18 | Outpatient (CLI) | payer OTHER, MEDICARE ==
[~2020-08-18] MED LIST changes: +ISOS1TAB35 PO; -ISOS30TA4 PO
[2020-08-18 16:13] LABS: BASO # 0.1 10^3/uL (0.0-0.2); EOS # 0.1 10^3/uL (0.0-0.5); EOS % 2.2 % (0.0-3.0); HEMATOCRIT 41.2 % (42.0-52.0); LYMPH # 1.4 10^3/uL (1.5-5.0); LYMPH % 23.6 % (24.0-44.0); MEAN CORPUSCULAR HEMOGLOBIN 31.3 pg (27.0-33.0); MEAN CORPUSCULAR HGB CONC 31.6 g/dl (32.0-36.5); MONO # 0.5 10^3/uL (0.0-0.8); MONO % 7.9 % (2.0-8.0); NEUTROPHILS # 3.9 10^3/uL (1.5-8.5); NEUTROPHILS % 65.3 % (36.0-66.0); PLATELET COUNT, AUTOMATED 185 10^3/uL (150-450); RED BLOOD COUNT 4.16 10^6/uL (4.30-6.10)
[2020-08-18 16:45] LABS: ALBUMIN 3.8 GM/DL (3.2-5.2); ALT/SGPT 44 U/L (12-78); BILIRUBIN,TOTAL 0.4 MG/DL (0.2-1.0); BLOOD UREA NITROGEN 29 MG/DL (7-18); CALCIUM LEVEL 9.6 MG/DL (8.8-10.2); CARBON DIOXIDE LEVEL 32 MEQ/L (21-32); CHLORIDE LEVEL 107 MEQ/L (98-107); CREATININE FOR GFR 1.61 MG/DL (0.70-1.30); FERRITIN 142 NG/ML (26-388); GLOMERULAR FILTRATION RATE 46.8 (>49); GLUCOSE, FASTING 100 MG/DL (70-100); IRON (FE) 125 UG/DL (65-175); MAGNESIUM LEVEL 2.3 MG/DL (1.8-2.4); PERCENT SATURATION 39.2 % (19.7-50.0); PHOSPHORUS LEVEL 3.7 MG/DL (2.5-4.9); POTASSIUM SERUM 4.4 MEQ/L (3.5-5.1); SODIUM LEVEL 142 MEQ/L (136-145); TOTAL IRON BINDING CAPACITY 319 UG/DL (250-450); TOTAL PROTEIN 6.9 GM/DL (6.4-8.2)
[2020-08-18 16:49] LABS: VITAMIN B12 LEVEL > 2000 PG/ML (247-911)
[2020-08-18 17:24] LABS: HEMOGLOBIN A1c 5.4 %
[2020-08-18 19:29] LABS: HEMATOCRIT 41.2 % (42.0-52.0)
== END ==
LOC: M WUC 11:11
PROVIDERS: ATTEND Physician Assistant
DX: K91.2 Postsurgical malabsorption, not elsewhere classified (principal); Z98.84 Bariatric surgery status; E55.9 Vitamin D deficiency, unspecified; Z86.39 Personal history of other endocrine, nutritional and metabolic disease

== ENCOUNTER → 2020-11-09 | Outpatient (REF) | payer OTHER ==
[2020-11-09 13:30] LABS: ALBUMIN 3.9 GM/DL (3.2-5.2); BILIRUBIN,TOTAL 0.4 MG/DL (0.2-1.0); CALCIUM LEVEL 9.4 MG/DL (8.8-10.2); CHOLESTEROL RISK RATIO 2.266 (<5); CREATININE FOR GFR 1.43 MG/DL (0.70-1.30); GLOMERULAR FILTRATION RATE 53.5 (>49); PERCENT SATURATION 29.2 % (19.7-50.0); POTASSIUM SERUM 4.5 MEQ/L (3.5-5.1); TOTAL PROTEIN 7.2 GM/DL (6.4-8.2)
== END ==
LOC: M SFHCADAM 09:15
PROVIDERS: ATTEND Physician Assistant
DX: I12.9 Hypertensive chronic kidney disease with stage 1 through stage 4 chronic kidney disease, or unspecified chronic kidney disease (principal); E78.2 Mixed hyperlipidemia; E61.1 Iron deficiency

== ENCOUNTER → 2020-12-24 | Outpatient (REF) | payer OTHER, MEDICARE | LOC: M LAB REF 17:26 | PROVIDERS: ATTEND Nurse Practitioner Family | DX: E83.42 Hypomagnesemia (principal) ==

== ENCOUNTER → 2021-04-14 | Outpatient (CLI) | payer MEDICARE, OTHER ==
[~2021-04-14] MED LIST changes: +ACET32TAB PO; +CALC250T PO; +CHOL1CAP PO; +CYAN500T14 PO; +ROCA0.25 PO; +TORS5TAB2 PO; +VENTAER INH; +VITA400C56 PO; +VITMTA PO
== END ==
LOC: M LABSMTC 12:49
PROVIDERS: ATTEND Anesthesiology
DX: Z01.818 Encounter for other preprocedural examination (principal); Z11.52 Encounter for screening for COVID-19

== ENCOUNTER 2021-04-19 06:51 | Day surgery (SDC) | payer MEDICARE, OTHER ==
[~2021-04-19] VITALS: Ht 182.9 cm; Wt 95.3 kg
[~2021-04-19 06:51] MED LIST changes: +NS 1,000 ML IV ONE
[2021-04-19] MEDS ORDERED: propofoL 500 MG/50 ML VIAL As Ordered ONE (08:22)
[2021-04-19] MEDS ORDERED: LIDOCAINE 2% 100MG/5ML SDV (FOR ANES.) As Ordered ONE (08:22)
[2021-04-19] MEDS ORDERED: propofoL 200 MG/20 ML VIAL As Ordered ONE (08:22)
[2021-04-19 09:15] VITALS: BP 128/77
== END 2021-04-19 09:17 | disposition home or self-care (01) ==
LOC: M OPP 06:51
PROVIDERS: ATTEND Internal Medicine Gastroenterology
DX: D12.3 Benign neoplasm of transverse colon (principal); K64.9 Unspecified hemorrhoids; K57.10 Diverticulosis of small intestine without perforation or abscess without bleeding; Z12.11 Encounter for screening for malignant neoplasm of colon; Z88.6 Allergy status to analgesic agent

== ENCOUNTER → 2021-05-07 | Outpatient (CLI) | payer MEDICARE, OTHER ==
[~2021-05-07] MED LIST changes: -NS 1,000 ML IV ONE
[2021-05-07 13:28] LABS: ALBUMIN 3.6 GM/DL (3.2-5.2); BILIRUBIN,TOTAL 0.6 MG/DL (0.2-1.0); CALCIUM LEVEL 9.5 MG/DL (8.8-10.2); CHOLESTEROL RISK RATIO 2.444 (<5); CREATININE FOR GFR 1.32 MG/DL (0.70-1.30); GLOMERULAR FILTRATION RATE 58.7 (>49); PERCENT SATURATION 29.9 % (19.7-50.0); POTASSIUM SERUM 4.3 MEQ/L (3.5-5.1); TOTAL 25(OH) VITAMIN D 45.3 NG/ML (30.0-100.0); TOTAL PROTEIN 7.1 GM/DL (6.4-8.2)
== END ==
LOC: M WUC 10:28
PROVIDERS: ATTEND Physician Assistant
DX: E61.1 Iron deficiency (principal); E78.2 Mixed hyperlipidemia; E55.9 Vitamin D deficiency, unspecified; Z79.899 Other long term (current) drug therapy

== ENCOUNTER → 2021-05-11 | Outpatient (REF) | payer MEDICARE, OTHER | LOC: M SFHCADAM 12:32 | PROVIDERS: ATTEND Physician Assistant | DX: J02.9 Acute pharyngitis, unspecified (principal) | CPT/HCPCS: 87426; G0463; U0003 ==

== ENCOUNTER → 2021-07-12 | Outpatient (REF) | LOC: M LABSMTC 10:05 | PROVIDERS: ATTEND Pediatrics | DX: Z11.52 Encounter for screening for COVID-19 (principal) ==

== ENCOUNTER → 2021-11-04 | Outpatient (REF) | payer MEDICARE ==
[2021-11-04 13:01] LABS: HEMATOCRIT 42.4 % (42.0-52.0); HEMOGLOBIN 13.6 g/dl (13.5-17.5); MEAN CORPUSCULAR HEMOGLOBIN 31.2 pg (27.0-33.0); MEAN CORPUSCULAR HGB CONC 32.1 g/dl (32.0-36.5); MEAN CORPUSCULAR VOLUME 97.2 fl (80.0-96.0); PLATELET COUNT, AUTOMATED 183 10^3/uL (150-450); RED BLOOD COUNT 4.36 10^6/uL (4.30-6.10); WHITE BLOOD COUNT 6.8 10^3/uL (4.0-10.0)
[2021-11-04 13:15] LABS: ALBUMIN 3.7 GM/DL (3.2-5.2); BILIRUBIN,TOTAL 0.4 MG/DL (0.2-1.0); CALCIUM LEVEL 9.7 MG/DL (8.8-10.2); CHOLESTEROL RISK RATIO 2.532 (<5); CREATININE FOR GFR 1.5 MG/DL (0.70-1.30); GLOMERULAR FILTRATION RATE 50.5 (>49); POTASSIUM SERUM 4.6 MEQ/L (3.5-5.1); TOTAL PROTEIN 7.1 GM/DL (6.4-8.2)
[2021-11-04 13:22] LABS: TOTAL 25(OH) VITAMIN D 38.6 NG/ML (30.0-100.0)
== END ==
LOC: M SFHCADAM 08:28
PROVIDERS: ATTEND Physician Assistant
DX: E78.2 Mixed hyperlipidemia (principal); I10 Essential (primary) hypertension; E61.1 Iron deficiency; E55.9 Vitamin D deficiency, unspecified

== ENCOUNTER 2022-03-24 16:53 | Emergency (ER) | payer MEDICARE, OTHER ==
[~2022-03-24] VITALS: Ht 182.9 cm; Wt 106.6 kg
[2022-03-24] MEDS ORDERED: PRED20TA PO (19:29)
[2022-03-24 19:40] VITALS: BP 140/80
== END 2022-03-24 19:43 | disposition home or self-care (01) ==
LOC: M ED 16:53
DX: S46.211A Strain of muscle, fascia and tendon of other parts of biceps, right arm, initial encounter (principal); M79.604 Pain in right leg; W01.0XXA Fall on same level from slipping, tripping and stumbling without subsequent striking against object, initial encounter; Y92.017 Garden or yard in single-family (private) house as the place of occurrence of the external cause; I10 Essential (primary) hypertension; G47.33 Obstructive sleep apnea (adult) (pediatric); J44.9 Chronic obstructive pulmonary disease, unspecified; Z88.6 Allergy status to analgesic agent; Z88.8 Allergy status to other drugs, medicaments and biological substances; Z79.51 Long term (current) use of inhaled steroids; Z79.899 Other long term (current) drug therapy

== ENCOUNTER → 2022-05-06 | Outpatient (CLI) | payer MEDICARE, OTHER ==
[~2022-05-06] MED LIST changes: +PRED20TA PO
[2022-05-06 14:02] LABS: BASO # 0.1 10^3/uL (0.0-0.2); BASO % 1.2 % (0.0-1.0); EOS # 0.2 10^3/uL (0.0-0.5); EOS % 2.6 % (0.0-3.0); HEMATOCRIT 42.1 % (42.0-52.0); HEMOGLOBIN 13.1 g/dl (13.5-17.5); LYMPH # 1.7 10^3/uL (1.5-5.0); LYMPH % 22.8 % (24.0-44.0); MEAN CORPUSCULAR HEMOGLOBIN 30.8 pg (27.0-33.0); MEAN CORPUSCULAR HGB CONC 31.1 g/dl (32.0-36.5); MEAN CORPUSCULAR VOLUME 98.8 fl (80.0-96.0); MONO # 0.6 10^3/uL (0.0-0.8); NEUTROPHILS % 65.1 % (36.0-66.0); PLATELET COUNT, AUTOMATED 190 10^3/uL (150-450); RED BLOOD COUNT 4.26 10^6/uL (4.30-6.10); WHITE BLOOD COUNT 7.6 10^3/uL (4.0-10.0)
[2022-05-06 14:27] LABS: INR 1.03; PROTHROMBIN TIME 13.8 SECONDS (12.5-14.5)
[2022-05-06 14:34] LABS: BILIRUBIN,TOTAL 0.4 MG/DL (0.3-1.2); CALCIUM LEVEL 9.5 MG/DL (8.3-10.6); CREATININE FOR GFR 1.49 MG/DL (0.70-1.30); GLOMERULAR FILTRATION RATE 50.9 (>49); POTASSIUM SERUM 4.7 MMOL/L (3.5-5.1); TOTAL PROTEIN 7.2 G/DL (5.7-8.2)
== END ==
LOC: M PLALAB 10:50
PROVIDERS: ATTEND Orthopaedic Surgery
DX: S46.011D Strain of muscle(s) and tendon(s) of the rotator cuff of right shoulder, subsequent encounter (principal); W18.30XD Fall on same level, unspecified, subsequent encounter

== ENCOUNTER → 2022-06-09 | Outpatient (CLI) | payer MEDICARE, OTHER | LOC: M ADAMS 11:00 | PROVIDERS: ATTEND Nurse Practitioner Family | DX: R06.02 Shortness of breath (principal) ==

== ENCOUNTER → 2022-09-08 | Outpatient (REF) | payer MEDICARE ==
[2022-09-08 14:43] LABS: FERRITIN 41.9 NG/ML (10.5-307.3); FREE T4 0.83 NG/DL (0.89-1.76)
[2022-09-08 14:44] LABS: CHOLESTEROL LEVEL 186 MG/DL (<200); CHOLESTEROL RISK RATIO 2.72 (<5); HDL CHOLESTEROL 68.2 MG/DL (>40); LDL CHOLESTEROL 104.4 MG/DL (<100); NON-HDL-C 117.8 MG/DL; THYROID STIMULATING HORMONE 3.146 uIU/ML (0.55-4.78); TRIGLYCERIDES LEVEL 67 MG/DL (<150)
[2022-09-08 14:45] LABS: IRON (FE) 69 UG/DL (65-175); PERCENT SATURATION 19.7 % (19.7-50.0); TOTAL 25(OH) VITAMIN D 39.1 NG/ML (20.0-100.0); TOTAL IRON BINDING CAPACITY 351 UG/DL (250-425)
[2022-09-08 14:46] LABS: VITAMIN B12 LEVEL 1941 PG/ML (211-911)
[2022-09-08 14:47] LABS: FOLATE > 24.0 NG/ML (>5.4)
[2022-09-08 15:54] LABS: HEMOGLOBIN A1c 5.2 % (4.0-6.0)
== END ==
LOC: M SFHCADAM 10:14
PROVIDERS: ATTEND Physician Assistant
DX: Z00.00 Encounter for general adult medical examination without abnormal findings (principal); Z12.5 Encounter for screening for malignant neoplasm of prostate; E78.00 Pure hypercholesterolemia, unspecified; I10 Essential (primary) hypertension; N18.31 Chronic kidney disease, stage 3a; Z98.84 Bariatric surgery status; Z13.1 Encounter for screening for diabetes mellitus; E55.9 Vitamin D deficiency, unspecified
CPT/HCPCS: 80061; 82306; 82607; 82728; 82746; 83036; 83550; 84439; 84443; G0103

== ENCOUNTER → 2023-09-19 | Outpatient (REF) | payer MEDICARE ==
[2023-09-19 14:42] LABS: HEMATOCRIT 44.9 % (42.0-52.0); HEMOGLOBIN 14.2 g/dl (13.5-17.5); MEAN CORPUSCULAR HEMOGLOBIN 31.2 pg (27.0-33.0); MEAN CORPUSCULAR HGB CONC 31.6 g/dl (32.0-36.5); MEAN CORPUSCULAR VOLUME 98.7 fl (80.0-96.0); PLATELET COUNT, AUTOMATED 211 10^3/uL (150-450); RED BLOOD COUNT 4.55 10^6/uL (4.30-6.10); WHITE BLOOD COUNT 7.5 10^3/uL (4.0-10.0)
[2023-09-19 15:01] LABS: PSA SCREENING 2.53 NG/ML (< 4.00)
[2023-09-19 15:03] LABS: ALBUMIN 3.4 G/DL (3.2-5.2); BILIRUBIN,TOTAL 0.4 MG/DL (0.3-1.2); CALCIUM LEVEL 9.5 MG/DL (8.3-10.6); CHOLESTEROL RISK RATIO 2.77 (<5); CREATININE FOR GFR 1.51 MG/DL (0.70-1.30); GLOMERULAR FILTRATION RATE 49.9 (>49); HDL CHOLESTEROL 69.6 MG/DL (>40); LDL CHOLESTEROL 109.6 MG/DL (<100); NON-HDL-C 123.4 MG/DL; POTASSIUM SERUM 4.7 MMOL/L (3.5-5.1)
[2023-09-19 15:05] LABS: THYROID STIMULATING HORMONE 3.139 uIU/ML (0.55-4.78)
[2023-09-19 15:06] LABS: FREE T4 0.94 NG/DL (0.89-1.76)
== END ==
LOC: M SFHCADAM 07:58
PROVIDERS: ATTEND Physician Assistant
DX: R79.89 Other specified abnormal findings of blood chemistry (principal); I12.9 Hypertensive chronic kidney disease with stage 1 through stage 4 chronic kidney disease, or unspecified chronic kidney disease; N18.31 Chronic kidney disease, stage 3a; E78.00 Pure hypercholesterolemia, unspecified; Z12.5 Encounter for screening for malignant neoplasm of prostate
CPT/HCPCS: 80053; 80061; 84439; 84443; 85027; 86376; G0103

== ENCOUNTER → 2023-09-29 | Outpatient (CLI) | payer MEDICARE, OTHER | LOC: M RAD 09:28 | PROVIDERS: ATTEND Nurse Practitioner Family | DX: N18.31 Chronic kidney disease, stage 3a (principal) ==

== ENCOUNTER → 2024-03-26 | Outpatient (CLI) | payer MEDICARE, OTHER ==
[2024-03-26 16:23] LABS: PLATELET COUNT, AUTOMATED 193 10^3/uL (150-450)
[2024-03-26 16:41] LABS: INR 1.1; PROTHROMBIN TIME 13.9 SECONDS (12.5-14.5)
== END ==
LOC: M WUC 10:47
PROVIDERS: ATTEND Physician Assistant
DX: Z01.818 Encounter for other preprocedural examination (principal); Z79.01 Long term (current) use of anticoagulants

== ENCOUNTER 2024-09-03 06:47 | Day surgery (SDC) | payer MEDICARE, OTHER ==
[~2024-09-03] VITALS: Ht 182.9 cm; Wt 107.4 kg
[~2024-09-03 06:47] MED LIST changes: +GABA-1171 PO; +MULTTAB61 PO; +SEMA1.7P; +VITA400T26 PO
[2024-09-03] MEDS ORDERED: propofoL 200 MG/20 ML VIAL As Ordered ONE (07:44)
[2024-09-03] MEDS ORDERED: LIDOCAINE 2% 100MG/5ML SDV (FOR ANES.) As Ordered ONE (07:44)
[2024-09-03] MEDS ORDERED: GLYCOPYRROLATE INJ 0.2 MG/ML 2 ML VIAL As Ordered ONE (08:19)
[2024-09-03 09:01] VITALS: BP 138/80; O2SAT 98
== END 2024-09-03 09:05 | disposition home or self-care (01) ==
LOC: M OPP 06:47
PROVIDERS: ATTEND Internal Medicine Gastroenterology
DX: D12.3 Benign neoplasm of transverse colon (principal); K57.30 Diverticulosis of large intestine without perforation or abscess without bleeding; K64.8 Other hemorrhoids; Z86.0100 Personal history of colon polyps, unspecified; G47.30 Sleep apnea, unspecified; Z88.6 Allergy status to analgesic agent; Z88.8 Allergy status to other drugs, medicaments and biological substances; Z79.85 Long-term (current) use of injectable non-insulin antidiabetic drugs; Z79.899 Other long term (current) drug therapy; Z98.84 Bariatric surgery status
CPT/HCPCS: 45385; 88305; J1596

== ENCOUNTER → 2024-09-10 | Outpatient (CLI) | payer MEDICARE, OTHER ==
[2024-09-10 13:13] LABS: HEMOGLOBIN A1c 4.8 % (4.0-6.0)
[2024-09-10 13:24] LABS: CHOLESTEROL RISK RATIO 2.57 (<5); HDL CHOLESTEROL 66.8 MG/DL (>40); LDL CHOLESTEROL 92.6 MG/DL (<100); NON-HDL-C 105.2 MG/DL; PSA SCREENING 3.33 NG/ML (< 4.00)
[2024-09-10 13:27] LABS: FREE T4 1.08 NG/DL (0.89-1.76); THYROID STIMULATING HORMONE 2.457 uIU/ML (0.55-4.78)
== END ==
LOC: M WUC 10:23
PROVIDERS: ATTEND Physician Assistant
DX: E66.01 Morbid (severe) obesity due to excess calories (principal); Z98.84 Bariatric surgery status; N18.31 Chronic kidney disease, stage 3a; I12.9 Hypertensive chronic kidney disease with stage 1 through stage 4 chronic kidney disease, or unspecified chronic kidney disease; Z23 Encounter for immunization; D36.9 Benign neoplasm, unspecified site; Z12.5 Encounter for screening for malignant neoplasm of prostate
CPT/HCPCS: 36415; 80061; 83036; 84439; 84443; G0103

== ENCOUNTER → 2025-01-07 | Outpatient (CLI) | payer MEDICARE, OTHER | LOC: M PLAIMG 12:39 | PROVIDERS: ATTEND Physician Assistant | DX: I71.21 Aneurysm of the ascending aorta, without rupture (principal); I08.9 Rheumatic multiple valve disease, unspecified ==

== ENCOUNTER → 2025-03-18 | Outpatient (REF) | payer MEDICARE, OTHER ==
[2025-03-18 14:36] LABS: IRON (FE) 64.0 UG/DL (65-175); PERCENT SATURATION 19.1 % (19.7-50.0)
[2025-03-18 14:37] LABS: ALT/SGPT 25.0 U/L (7.0-40); AST/SGOT 20.0 U/L (<34); CALCIUM LEVEL 9.4 MG/DL (8.3-10.6); CARBON DIOXIDE LEVEL 27.0 MMOL/L (20-31); CHLORIDE LEVEL 106.0 MMOL/L (98-107); CREATININE FOR GFR 1.48 MG/DL (0.70-1.30); GLOMERULAR FILTRATION RATE 52.2 (>49); POTASSIUM SERUM 4.7 MMOL/L (3.5-5.1); SODIUM LEVEL 143.0 MMOL/L (136-145); VITAMIN B12 LEVEL 1751.0 PG/ML (211-911)
[2025-03-18 14:58] LABS: ESTIMATED AVERAGE GLUCOSE 105.0 MG/DL (60-110)
== END ==
LOC: M SFHCADAM 08:52
PROVIDERS: ATTEND Physician Assistant
DX: I12.9 Hypertensive chronic kidney disease with stage 1 through stage 4 chronic kidney disease, or unspecified chronic kidney disease (principal); N18.31 Chronic kidney disease, stage 3a; Z98.84 Bariatric surgery status; Z79.899 Other long term (current) drug therapy